=== PATIENT | male | born 1965 | race Caucasian/White ===

== ENCOUNTER 2025-05-31 14:16 | Observation (INO) | payer SELFPAY ==
[2025-05-31] VITALS (9 sets, daily range): BP systolic 151–167; BP diastolic 95–118; PULSE 80–112; RESP 16–19; TEMP 36.7–37.2; O2SAT 93–96; BMI 24.3
--- NOTE | 2025-05-31 14:19 | XRR_ITS ---
PROCEDURE INFORMATION: Exam: XR Chest Exam date and time: 05/31/2025 2:19 PM Age: 59 years old Clinical indication: Condition or disease; Lung condition and disease; Severity not specified; X3 weeks SOB, HX of asthma; Additional info: Dyspnea/cough TECHNIQUE: Imaging protocol: Radiologic exam of the chest. Views: 1 view. COMPARISON: No relevant prior studies available. FINDINGS: Lungs: Unremarkable. No consolidation. Pleural spaces: Unremarkable. No pleural effusion. No pneumothorax. Heart/Mediastinum: Unremarkable. No cardiomegaly. Bones/joints: Unremarkable. XR/XR chest 1V portable [id number] IMPRESSION: No acute findings.
--- NOTE | 2025-05-31 14:19 | ECG_ITS ---
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
[2025-05-31 15:04] LABS: Hematocrit 47.0 % (37-53); Hemoglobin 15.30 g/dL (11.27-16.99); Mean Corpuscular HGB Conc 32.6 g/dL (30-55); Mean Corpuscular Hemoglobin 30.7 pg (27-33); Mean Corpuscular Volume 94.2 fl (82-101); Nucleated Red Blood Cells % 0 %; Platelet Count 251 10^3/cmm (157-399); Red Blood Count 4.99 10^6/uL (3.85-5.65); White Blood Count 11.72 10^3/uL (3.29-11.43)
--- NOTE | 2025-05-31 15:04 | W.ED.SOB ---
HPI - SOB/Dyspnea General: Chief Complaint: Shortness of Breath/Dyspnea Stated Complaint: SOB Time Seen by Provider: 05/31/25 14:18 History of Present Illness: HPI Narrative: 59-year-old male presents to the emergency room complaining of shortness of breath. Is worse after he got shower. He has been on steroids oral antibiotics they did improve things for a bit but once he finished he worsened again nonproductive cough no hemoptysis no chest pain Associated symptoms: Deny abdominal pain, chest congestion, chest pain or fever(s) Related Data Home Medications ?Medication ?Instructions ?Recorded ?Confirmed fexofenadine 180 mg tablet 180 mg PO DAILY 05/31/25 05/31/25 (Allergy Relief (fexofenadine)) fluoxetine 20 mg capsule 20 mg PO DAILY 05/31/25 05/31/25 ibuprofen 200 mg tablet (Advil) 600 mg PO Q6H PRN Fever Or Pain 05/31/25 05/31/25 Previous Rx's ?Medication ?Instructions ?Recorded albuterol sulfate 90 mcg/actuation 1 inh inhalation Q4H PRN shortness 06/01/25 aerosol inhaler (Ventolin HFA) of breath or wheezing #8.5 grams Allergies Allergy/AdvReac Type Severity Reaction Status Date / Time No Known Allergies Allergy Verified 06/01/25 00:48 Review of Systems Const: Denies: fever(s) or chills Card: Denies: chest pain Resp: Reports: dyspnea, non-productive cough and wheezing; Denies: chest congestion GI: Denies: abdominal pain : Denies: dysuria, urinary frequency or urinary urgency Musc: Denies: neck pain or back pain Skin/Breast: Denies: rash Physical Exam Const: COMMON NORMALS: no acute distress GENERAL APPEARANCE: cooperative and comfortable ORIENTATION/CONSCIOUSNESS: Yes awake, Yes oriented to person, Yes oriented to place and Yes oriented to time HENMT: COMMON NORMALS: normocephalic, atraumatic and hearing grossly normal bilaterally HEAD & SCALP: normocephalic and atraumatic Resp: EFFORT & INSPECTION: Yes tachypneic, Yes pursed lip breathing, Yes labored and Yes audible wheezes AUSCULTATION: rhonchi and wheezes Cardio: COMMON NORMALS: regular rate, regular rhythm and No murmurs present (Cardio) RATE: regular rate RHYTHM: regular rhythm GI: COMMON NORMALS: Soft to palpation and No hepatosplenomegaly present AUSCULTATION: Yes normoactive bowel sounds PALPATION: Yes Soft to palpation, No Tenderness to palpation present (GI), No Guarding due to palpation present (GI) and Yes No hepatosplenomegaly present Extremity: COMMON NORMALS: normal to inspection, capillary refill normal, no clubbing, cyanosis or edema, no calf tenderness and no pedal edema Neuro: SENSORIUM/ORIENTATION: Yes oriented to person, Yes oriented to place and Yes oriented to time Skin: COMMON NORMALS: no rashes or lesions noted GENERAL SKIN EXAM: no rashes or lesions noted Course Vital Signs: Vital signs: Vital Signs Temperature 98.3 F 06/01/25 16:19 Pulse Rate 127 H 06/01/25 16:19 Respiratory Rate 18 06/01/25 16:19 Blood Pressure 141/83 06/01/25 16:19 Pulse Oximetry 92 06/01/25 16:19 Oxygen Delivery Me thod Room Air 06/01/25 16:00 Oxygen Flow Rate 2 05/31/25 15:53 MDM - SOB/Dyspnea Medical Decision Making Exacerbation COPD. He is tachycardic mildly hypoxic as failed outpatient treatment will admit for progressive steroids and nebulizers. Lab Data 06/01/25 05:45 06/01/25 05:45 Labs/Radiology: Radiology Impressions Chest X-Ray 06/01/25 08:00 IMPRESSION: No acute pulmonary finding. Chest CTA 06/01/25 13:17 IMPRESSION: 1. No pulmonary embolism. 2. Multifocal opacities, suggestive of pneumonia. Laboratory Results WBC 11.72 10^3/uL (3.29-11.43) H 05/31/25 14:48 RBC 4.99 10^6/uL (3.85-5.65) 05/31/25 14:48 Hgb 15.30 g/dL (11.27-16.99) 05/31/25 14:48 Hct 47.0 % (37-53) 05/31/25 14:48 MCV 94.2 fl (82-101) 05/31/25 14:48 MCH 30.7 pg (27-33) 05/31/25 14:48 MCHC 32.6 g/dL (30-55) 05/31/25 14:48 RDW 13.0 % (12.1-15.1) 05/31/25 14:48 Plt Count 251 10^3/cmm (157-399) 05/31/25 14:48 MPV 9.7 fL (7.4-10.4) 05/31/25 14:48 Neut % (Auto) 72.3 % 05/31/25 14:48 Lymph % (Auto) 13.3 % 05/31/25 14:48 Swain % (Auto) 6.2 % 05/31/25 14:48 Eos % (Auto) 7.4 % 05/31/25 14:48 Baso % (Auto) 0.5 % 05/31/25 14:48 Neut # (Auto) 8.47 10^3/uL (1.8-7.7) H 05/31/25 14:48 Lymph # (Auto) 1.6 10^3/uL (0.8-4.8) 05/31/25 14:48 Swain # (Auto) 0.7 10^3/uL (0.2-0.9) 05/31/25 14:48 Eos # (Auto) 0.9 10^3/uL (0.0-0.8) H 05/31/25 14:48 Baso # (Auto) 0.1 10^3/uL (0.0-0.1) 05/31/25 14:48 Nucleated RBC % (auto) 0 % 05/31/25 14:48 Nucleated RBCs # 0.0 /100WBC 05/31/25 14:48 D-Dimer <= 0.27 ug/mLFEU (0-0.59) 05/31/25 14:43 Sodium 141 mmol/L (136-145) 05/31/25 14:48 Potassium 4.3 mmol/L (3.5-5.1) 05/31/25 14:48 Chloride 106 mmol/L (98-107) 05/31/25 14:48 Carbon Dioxide 21 mmol/L (22-29) L 05/31/25 14:48 Anion Gap 18.3 (5-19) 05/31/25 14:48 BUN 15 mg/dL (6-20) 05/31/25 14:48 Creatinine 1.1 mg/dL (0.7-1.2) 05/31/25 14:48 GFR Calculation 68.8 mL/min (90-130) L 05/31/25 14:48 Glucose 102 mg/dL (65-115) 05/31/25 14:48 Calculated Osmolality 293 mOsm/kg (285-295) 05/31/25 14:48 Calcium 9.3 mg/dL (8.5-10.5) 05/31/25 14:48 Total Bilirubin 0.5 mg/dL (0.15-1.2) 05/31/25 14:48 AST 17 U/L (0-40) 05/31/25 14:48 ALT 21 U/L (0-41) 05/31/25 14:48 Alkaline Phosphatase 70 U/L (40-130) 05/31/25 14:48 Total Protein 6.7 g/dL (6.6-8.7) 05/31/25 14:48 Albumin 4.1 g/dL (3.5-5.2) 05/31/25 14:48 Globulin 2.6 g/dL (1.3-4.6) 05/31/25 14:48 Procalcitonin 0.06 ng/mL (0-0.5) 05/31/25 14:43 Influenza A (PCR) Negative (Negative) 05/31/25 16:13 Influenza Type B (PCR) Negative (Negative) 05/31/25 16:13 RSV (PCR) Negative (Negative) 05/31/25 16:13 SARS-CoV-2 (PCR) Negative (Negative) 05/31/25 16:13 All radiology interpretation(s) finalized by discharge Discharge Plan Discharge Patient Disposition: Placed in Observation Admit Provider: Janice Evangelista Clinical Impression: Acute exacerbation of chronic obstructive airways disease Discharge Diet: Cardiac Discharge Activity: Resume usual activity Coding Level of Care Code ED Eap Clinician for Jean Carlos Camacho
--- NOTE | 2025-05-31 15:22 | PM.HP ---
Providers/Chief Complaint Chief Complaint: SOB History of Present Illness Erlin Dickens is a 59 year old male with past medical history of COPD stroke, hypertension, oxygen dependent at home on 3 L nasal cannula, diabetes mellitus insulin-dependent, from [facility] presented to the hospital today after being sent here for low O2 saturations. He stated that they were in the low 80s. He is a very poor historian. He states he cannot stand up and that is his usual. He is from a skilled nursing. He states his breathing is better than it was before. He was just short of breath. Denies chest pain nausea vomiting abdominal pain. Does have diarrhea x 2 weeks. He states his loose stools and he has been going several times a day. Other than that he is unable to answer any questions. Patient is not altered. He knows where he is. He is just a very poor historian. Work has not been sent with him from the nursing facility. Medications/Allergies Home Medications ?Medication ?Instructions ?Recorded ?Confirmed ?Last Taken ?Type diphenhydramine HCl 25 mg tablet 25 mg PO TID PRN Allergy Symptoms 05/31/25 05/31/25 05/29/25 History (Benadryl Allergy) fexofenadine 180 mg tablet 180 mg PO DAILY 05/31/25 05/31/25 05/31/25 History (Allergy Relief (fexofenadine)) fluoxetine 20 mg capsule 20 mg PO DAILY 05/31/25 05/31/25 05/31/25 History ibuprofen 200 mg tablet (Advil) 600 mg PO Q6H PRN Fever Or Pain 05/31/25 05/31/25 05/30/25 19:00 History Allergies Allergy/AdvReac Type Severity Reaction Status Date / Time amoxicillin (From Augmentin) Allergy Unknown Verified 05/31/25 14:22 clavulanic acid (From Allergy Unknown Verified 05/31/25 14:22 Augmentin) Vitals/I&O/Wt Last Vital Signs Temp 98.0 F 05/31/25 14:17 Pulse 105 H 05/31/25 14:17 Resp 17 05/31/25 14:17 BP 160/108 05/31/25 14:17 Pulse Ox 95 05/31/25 14:17 O2 Del Method Room Air 05/31/25 14:17 Weight last 48 hrs Weight 77.111 kg Physical Exam Narrative: General: Alert oriented x3, patient seen laying in bed appearing comfortable at this time on 3 L nasal cannula., Hypertensive HEENT: Normocephalic, atraumatic, EOMI, no conversational dyspnea, no acute tachypnea. Breathing comfortably. Cardio: Normal S1-S2, muffled heart sounds due to body habitus. Respiratory: Diffuse rhonchi bilateral lung [place] worse at bases. GI: Abdomen soft, nontender, obese rounded abdomen, bowel sounds + Extremities: No gross edema bilateral lower extremities. Data 05/31/25 14:48 05/31/25 14:48 A&P Assessment and plan (1) COPD (chronic obstructive pulmonary disease): (2) COPD exacerbation: (3) Asthma: (4) Hypoxia: (5) Shortness of breath: (6) Supplemental oxygen dependent: (7) Hypertension: (8) Diabetes mellitus: (9) Insulin dependent diabetes mellitus: (10) Diarrhea: Plan #COPD exacerbation #Possible underlying pneumonia #Hypertension #Diabetes mellitus type 2, insulin-dependent #History of stroke #Generalized weakness/deconditioning #[facility] resident ? Continue ceftriaxone azithromycin to cover for COPD exacerbation and possible pneumonia ? Check sputum Gram stain culture ? Check blood cultures ? Leukocytosis WBC 11,000 today. ? D-dimer negative ? Influenza RSV COVID negative. ? Patient does have a history of COPD/asthma. ? Will place on Solu-Medrol 40 IV twice daily. He did receive 125 in the ER already. ? Continue DuoNeb scheduled every 6 hours. ? Check hemoglobin A1c, TSH ? He states he has a history of hypertension however is not on any antihypertensives at home. I will order amlodipine 5 mg daily. ? Blood pressure 160/108 in the ER. ? May titrate medication up as needed. ? Will request records from nursing facility. ? Check blood cultures ? Patient's oxygen is at baseline. ? Oxygen therapy protocol ? Patient will likely need prednisone and antibiotics at discharge. ? Check C. difficile, stool culture ?Monitor for diarrhea. Full code Due to prophylaxis: Heparin SQ twice daily PDMP PDMP Reviewed: Not Reviewed Attestations Medical Necessity Statement*: COPD exacerbation with possible pneumonia. Observation admission expect less than 2 midnight stay. Diagnoses COPD (chronic obstructive pulmonary disease) J44.9 COPD exacerbation J44.1 Asthma J45.909 Hypoxia R09.02 Shortness of breath R06.02 Supplemental oxygen dependent Z99.81 Hypertension I10 Diabetes mellitus E11.9 Insulin dependent diabetes mellitus Diarrhea R19.7
[2025-05-31 15:28] LABS: Alanine Aminotransferase 21 U/L (0-41); Albumin Level 4.1 g/dL (3.5-5.2); Alkaline Phosphatase 70 U/L (40-130); Anion Gap 18.3 (5-19); Aspartate Amino Transferase 17 U/L (0-40); Blood Urea Nitrogen 15 mg/dL (6-20); Calcium 9.3 mg/dL (8.5-10.5); Carbon Dioxide 21 mmol/L (22-29); Chloride 106 mmol/L (98-107); Creatinine Clr Calc Pharmacy 77.2833; Globulin 2.6 g/dL (1.3-4.6); Glucose 102 mg/dL (65-115); Osmolality Calculated 293 mOsm/kg (285-295); Potassium 4.3 mmol/L (3.5-5.1); Sodium 141 mmol/L (136-145); Total Protein 6.7 g/dL (6.6-8.7)
[2025-05-31] MEDS: cefTRIAXone 1,000 mg SDV 1000 MG IVP (15:56)
[2025-05-31] MEDS: methylPREDNISolone sod succ 40 mg/mL INJ IVP (15:58)
[2025-05-31 15:59] LABS: Procalcitonin 0.06 ng/mL (0-0.5)
[2025-05-31] MEDS: heparin 5,000 unit/mL INJ 1 mL 5000 UNIT SUBCUT (16:02)
[2025-05-31 17:04] LABS: Respiratory Syncytial Virus Ce NEGATIVE (Negative); SARS-CoV-2 PCR NEGATIVE (Negative)
[2025-05-31 18:54] LABS: Hematocrit 47.9 % (37-53); Hemoglobin 15.50 g/dL (11.27-16.99); Mean Corpuscular HGB Conc 32.4 g/dL (30-55); Mean Corpuscular Hemoglobin 31.1 pg (27-33); Mean Corpuscular Volume 96.0 fl (82-101); Nucleated Red Blood Cells % 0 %; Platelet Count 251 10^3/cmm (157-399); Red Blood Count 4.99 10^6/uL (3.85-5.65); White Blood Count 10.42 10^3/uL (3.29-11.43)
[2025-05-31 19:25] LABS: NT Pro B Type Natriuretic Pept 89 pg/mL (0-125)
--- NOTE | 2025-05-31 23:38 | P.HP_ITS ---
Providers/Chief Complaint 2 Admitting Physician: Janice Evangelista MD/ Dr Fuller Primary Care Provider: Patient seen and evaluated before 12 midnight Chief Complaint: SOB History of Present Illness Erlin Dickens is a 59 year old male with no significant medical history, patient had never smoked in his life and had avoided secondhand smoking. As a child patient had had ongoing acute on chronic sinusitis and with postnasal drip triggering most of the time asthmatic bronchitis with cough. Patient had been with albuterol nebulizing treatment which helped some but not completely. Patient is allergic to only seasonal allergies. After some years patient was on inhaler Triology. 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 Over a year ago patient was looking into having time off from work by choice trying to retire and with this insurance could not cover Triology. Patient over the past year now started having much asthmatic bronchitis again to where he could not breathe patient used to live in [place] and then moved down here to [place] . 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 I will obtain case management consultation to see what could be done if patient need to be given some supplies to carry him roughly about 3 weeks before the insurance coverage kicks in. The Triology he is using is an inhaler. This patient had dramatically improved had been placed on empiric antibiotics of azithromycin and ceftriaxone for an associated bronchitis and patient also had been given some Solu-Medrol in the emergency room and this had been continued for 40 mg twice daily. This is a 23- hour observation stay. Review of Systems 2 Narrative: System review upon 10 organ review where significant for at this time mild shortness of breath. Otherwise unremarkable patient is on room air pulse ox and 97 to 98%. Medications/Allergies Home Medications ?Medication ?Instructions ?Recorded ?Confirmed ?Last Taken ?Type diphenhydramine HCl 25 mg tablet 25 mg PO TID PRN Rc rgy Symptoms 05/31/25 05/31/25 05/29/25 History (Benadryl Allergy) fexofenadine 180 mg tablet 180 mg PO DAILY 05/31/2505/31/25 History (Allergy Relief (fexofenadine)) fluoxetine 20 mg capsule 20 mg PO DAILY 05/31/25 07/0 03/2205/31/25 History ibuprofen 200 mg tablet (Advil) 600 mg PO Q6H PRN Feve r Or Pain 05/31/25 05/31/25 05/30/25 19:00 History Allergies Allergy/AdvReac Type Severity Reaction Status Date / Time No Known Allergies Allergy Verified 06/01/25 00:48 Vitals/I&O/Wt Last Vital Signs Temp 98.9 F 05/31/25 19:45 Pulse 110 H 05/31/25 20:57 Resp 17 05/31/25 20:50 BP 151/99 05/31/25 19:45 Pulse Ox 94 05/31/25 20:50 O2 Del Method Room Air 05/31/25 20:50 O2 Flow Rate 2 05/31/25 15:53 Weight last 48 hrs Weight 76.975 kg Weight 77.111 kg Physical Exam 2 Narrative: General The patient is in no apparent distress with no conversational dyspnea patient is on room air. HEENT normocephalic/atraumatic Neck neck is supple Heart rate is regular no murmurs Chest lungs are clear with no adventitious breath sounds Abdomen soft nontender nondistended unremarkable Extremities intact no edema has good pulses Neurology has no focality Lab studies and imaging were entirely unremarkable. Chest x-ray with no acute process chemistry unremarkable CBC unremarkable Data 06/01/25 05:45 06/01/25 05:45 A&P Assessment and plan (1) Asthma: Patient is with asthmatic bronchitis with acute exacerbation due to lack of use of Triology - Insurance is not covering Triology inhaler source patient is staying without medication care management - Patient responded to Solu-Medrol and nebulizing treatments at this time. - Patient is yet to have a primary care doctor that will continue to prescribe the Triology - Social service/case management consultation for discharge process regarding patient getting some Triology if this is possible at the time of discharge for patient cannot afford this because it is very expensive should a prescription be written for him His strategy is inhalation once a day and patient most likely will need to have 3 weeks worth of supply before the insurance kicks in in June 28. Patient is walking in this hospital. (2) Shortness of breath: Patient was with bronchial spasm causing shortness of breath with associated bronchitis -Evans antibiotics with ceftriaxone and azithromycin initiated for associated bronchitis - Did not need any oxygen patient is on room air pulse oxing very well - Nebulizing treatments to continue - Solu-Medrol steroid therapy had helped significantly (3) Asthmatic bronchitis with acute exacerbation: Patient is with asthmatic bronchitis with acute exacerbation due to lack of use of Triology - Insurance is not covering Triology inhaler source patient is staying without medication care management - Patient responded to Solu-Medrol and nebulizing treatments at this time. - Patient is yet to have a primary care doctor that will continue to prescribe the Triology - Social service/case management consultation for discharge process regarding patient getting some Triology if this is possible at the time of discharge for patient cannot afford this because it is very expensive should a prescription be written for him His strategy is inhalation once a day and patient most likely will need to have 3 weeks worth of supply before the insurance kicks in in June 28. Patient is walking in this hospital. Plan Gi DVT prophylaxis in place PDMP PDMP Reviewed: Not Reviewed Attestations 2 Medical Necessity Statement*: Patient is with asthmatic bronchitis and issues with shortness of breath I am wheezing had resolved status post care in the emergency room patient is okay to have observation admission for 1 midnights and should be able to be discharged tomorrow with case management to follow-up with patient Triology at discharge if possible. Patient does not have insurance and does not have the money to afford the Triology. This is a 23-hour stay observation Coding Level of Care Code 11170 Diagnoses Severe persistent asthma with acute exacerbation J45.51 Asthma complication type: with acute exacerbation Asthma severity: severe Shortness of breath R06.02 Asthmatic bronchitis with acute exacerbation J45.901 Time Spent (min) 60
[2025-06-01] VITALS (12 sets, daily range): BP systolic 112–141; BP diastolic 68–83; PULSE 102–138; RESP 16–20; TEMP 36.4–36.8; O2SAT 92–97
[2025-06-01] MEDS: heparin 5,000 unit/mL INJ 1 mL 5000 UNIT SUBCUT (03:16)
[2025-06-01 05:59] LABS: Hematocrit 44.7 % (37-53); Hemoglobin 14.70 g/dL (11.27-16.99); Mean Corpuscular HGB Conc 32.9 g/dL (30-55); Mean Corpuscular Hemoglobin 30.9 pg (27-33); Mean Corpuscular Volume 93.9 fl (82-101); Nucleated Red Blood Cells % 0 %; Platelet Count 258 10^3/cmm (157-399); Red Blood Count 4.76 10^6/uL (3.85-5.65); White Blood Count 11.26 10^3/uL (3.29-11.43)
[2025-06-01 06:24] LABS: Alanine Aminotransferase 18 U/L (0-41); Albumin Level 4.0 g/dL (3.5-5.2); Alkaline Phosphatase 61 U/L (40-130); Anion Gap 15.8 (5-19); Aspartate Amino Transferase 13 U/L (0-40); Blood Urea Nitrogen 17 mg/dL (6-20); Calcium 9.1 mg/dL (8.5-10.5); Carbon Dioxide 20 mmol/L (22-29); Chloride 107 mmol/L (98-107); Creatinine Clr Calc Pharmacy 106.0061; Globulin 2.6 g/dL (1.3-4.6); Glucose 158 mg/dL (65-115); Magnesium 2.1 mg/dL (1.7-2.3); Osmolality Calculated 291 mOsm/kg (285-295); Potassium 4.8 mmol/L (3.5-5.1); Sodium 138 mmol/L (136-145); Total Protein 6.6 g/dL (6.6-8.7)
--- NOTE | 2025-06-01 08:00 | XRR_ITS ---
PROCEDURE INFORMATION: Exam: XR Chest Exam date and time: 06/01/2025 9:54 AM Age: 59 years old Clinical indication: Follow up pneumonia; Cough TECHNIQUE: Imaging protocol: Radiologic exam of the chest. Views: 1 view. COMPARISON: CR XR chest 1V portable [id number] 05/31/2025 2:19 PM FINDINGS: Lungs: The pulmonary vessels are within normal limits. The lungs are clear. Pleural spaces: No pneumothorax. Heart/Mediastinum: The cardiomediastinal silhouette is within normal limits. Bones/joints: Chronic left-sided rib fracture XR/XR chest 1V portable [id number] IMPRESSION: No acute pulmonary finding.
[2025-06-01] MEDS: cefTRIAXone 1,000 mg SDV 1000 MG IVP (10:51)
[2025-06-01] MEDS: methylPREDNISolone sod succ 125 mg/2 mL INJ IVP (10:51)
--- NOTE | 2025-06-01 10:54 | PC.CHAP ---
Pastoral Care Encounter/Spiritual Assessment Type of Contact [x] Declined successfactors consultant visit [] Patient/Family/Request visit [] Outpatient visit [] Follow-up visit [] Physician referral [] Code/Alert [x] Routine visit [] Staff referral [] Actively dying [] Patient sleeping [] Family support [] [] Out of room [] Palliative care [] [] Receiving care in room [] Pre-surgical visit [] Trauma [] Long length of stay [] ICU visit [] Other: Relational/Emotional Strength [] Patient feels connected with others/family/visitors/staff [] Distress [] Loneliness/isolation [] Abandonment Spirituality of Patient [] Person of Olesya [] Attends Hindu of their Olesya [] Believes in Prayer [] Reads Bible or Baptist materials [] There are Spiritual issues to be addressed 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 Interventions [] Prayer [] Active listening [] Non-anxious presence [] Spiritual/emotional support [] Crisis/trauma care [] Spiritual counseling [] Bereavement support [] Provided bereavement packet [] Provided Bible/devotional materials [] Provided toy/stuffed animal, coloring book to patient or family member [] Provided Communion [] Anointing/[place] [] Salvation [] Completed spiritual assessment [] Other: Impact on Illness or Injury [] Angry [] Fearful [] Anxious [] Often cries [] Exhaustion [] Unable to work [] Unable to attend yazidism [] Unable to walk/stand [] Unable to read [] Unable to drive [] Unable to eat/drink [] Unable to sleep [] Unable to be with family [] Patient intubated [] Other: Summary Time spent with patient
--- NOTE | 2025-06-01 11:04 | P.DS_ITS ---
Discharge Providers Date of Admission: 05/31/25 17:47 Date of Discharge: June 01, 2025 Attending Provider at Admission: Janice Evangelista MD Attending Provider at Discharge: Israel Hicks MD Diagnoses at Discharge Discharge Diagnosis (1) Asthma: Status: Acute Qualifiers: Asthma severity: severe Asthma complication type: with acute exacerbation Qualified Code(s): J45.51 - Severe persistent asthma with (acute) exacerbation (2) Shortness of breath: Status: Deleted (3) Asthmatic bronchitis with acute exacerbation: Status: Acute Reason for Visit Reason for Visit: SOB Hospital Course Hospital Course This is a 59-year-old male who recently moved from [place] to [place], 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 Patient is adamant about discharge home today, he does have and expiratory wheezing, tachycardia with nebulizer treatments, no chest pain, no reported palpitations, no cardiovascular history, no history of smoking. But nonetheless tells me that he wants to go home. Will discharge home on a prednisone burst, oral antibiotics, with close follow-up with primary care provider as outpatient. Follow-up with pulmonary in 1 month. For his trilogy inhaler, follow-up with pulmonary or primary care provider once he has insurance. Sinus tachycardia, no calf pain, no calf swelling, hemoptysis, no chest pain, D- dimer within normal limits, tachycardia after nebulizer treatment, patient was advised if he continues to have tachycardia or chest pain go to the emergency room Physical Exam Const: COMMON NORMALS: no acute distress and patient oriented x3 Resp: COMMON NORMALS: normal respiratory effort, No retractions and No use of accessory muscles OTHER: And expiratory wheezing Cardio: COMMON NORMALS: regular rhythm, S1 normal heart sound present and S2 normal heart sound present RATE: tachycardic RHYTHM: regular rhythm HEART SOUNDS: S1 normal heart sound present and S2 normal heart sound present GI: COMMON NORMALS: Normal to inspection, nondistended, normoactive bowel sounds present and non-tender Extremity: COMMON NORMALS: no pedal edema Neuro: COMMON NORMALS: patient oriented x3 Psych: COMMON NORMALS: mental status grossly normal Discharge Data Studies Completed and Pending Completed Studies During Hospitalization Category Date Time Status XR chest 1V portable [id number] Routine Exams 06/01/25 08:00 Completed XR chest 1V portable [id number] Stat Exams 05/31/25 14:19 Completed Pending at discharge Category Date Time Status Sputum Culture and Gram Stain Stat Lab 05/31/25 15:24 Uncollected Stool Culture - Enteric [Salmonella / Shigella / Campy] Lab 05/31/25 17:55 Uncollected Routine CV. echo complete* [id number] Routine Ultrasound 06/01/25 15:23 Ordered Radiology Impressions Chest X-Ray 06/01/25 08:00 IMPRESSION: No acute pulmonary finding. Laboratory Results WBC 11.26 10^3/uL (3.29-11.43) 06/01/25 05:45 RBC 4.76 10^6/uL (3.85-5.65) 06/01/25 05:45 Hgb 14.70 g/dL (11.27-16.99) 06/01/25 05:45 Hct 44.7 % (37-53) 06/01/25 05:45 MCV 93.9 fl (82-101) 06/01/25 05:45 MCH 30.9 pg (27-33) 06/01/25 05:45 MCHC 32.9 g/dL (30-55) 06/01/25 05:45 RDW 13.0 % (12.1-15.1) 06/01/25 05:45 Plt Count 258 10^3/cmm (157-399) 06/01/25 05:45 MPV 9.7 fL (7.4-10.4) 06/01/25 05:45 Neut % (Auto) 85.4 % 06/01/25 05:45 Lymph % (Auto) 6.7 % 06/01/25 05:45 [place] % (Auto) 7.2 % 06/01/25 05:45 Eos % (Auto) 0.0 % 06/01/25 05:45 Baso % (Auto) 0.1 % 06/01/25 05:45 Neut # (Auto) 9.61 10^3/uL (1.8-7.7) H 06/01/25 05:45 Lymph # (Auto) 0.8 10^3/uL (0.8-4.8) 06/01/25 05:45 [place] # (Auto) 0.8 10^3/uL (0.2-0.9) 06/01/25 05:45 Eos # (Auto) 0.0 10^3/uL (0.0-0.8) 06/01/25 05:45 Baso # (Auto) 0.0 10^3/uL (0.0-0.1) 06/01/25 05:45 Nucleated RBC % (auto) 0 % 06/01/25 05:45 Nucleated RBCs # 0.0 /100WBC 06/01/25 05:45 D-Dimer <= 0.27 ug/mLFEU (0-0.59) 05/31/25 14:43 Sodium 138 mmol/L (136-145) 06/01/25 05:45 Potassium 4.8 mmol/L (3.5-5.1) 06/01/25 05:45 Chloride 107 mmol/L (98-107) 06/01/25 05:45 Carbon Dioxide 20 mmol/L (22-29) L 06/01/25 05:45 Anion Gap 15.8 (5-19) 06/01/25 05:45 BUN 17 mg/dL (6-20) 06/01/25 05:45 Creatinine 0.8 mg/dL (0.7-1.2) 06/01/25 05:45 GFR Calculation 99.3 mL/min (90-130) 06/01/25 05:45 Glucose 158 mg/dL (65-115) H 06/01/25 05:45 Calculated Osmolality 291 mOsm/kg (285-295) 06/01/25 05:45 Calcium 9.1 mg/dL (8.5-10.5) 06/01/25 05:45 Magnesium 2.1 mg/dL (1.7-2.3) 06/01/25 05:45 Total Bilirubin 0.3 mg/dL (0.15-1.2) 06/01/25 05:45 AST 13 U/L (0-40) 06/01/25 05:45 ALT 18 U/L (0-41) 06/01/25 05:45 Alkaline Phosphatase 61 U/L (40-130) 06/01/25 05:45 NT-Pro-B Natriuret Pep 89 pg/mL (0-125) 05/31/25 18:13 Total Protein 6.6 g/dL (6.6-8.7) 06/01/25 05:45 Albumin 4.0 g/dL (3.5-5.2) 06/01/25 05:45 Globulin 2.6 g/dL (1.3-4.6) 06/01/25 05:45 Procalcitonin 0.06 ng/mL (0-0.5) 05/31/25 14:43 Influenza A (PCR) Negative (Negative) 05/31/25 16:13 Influenza Type B (PCR) Negative (Negative) 05/31/25 16:13 RSV (PCR) Negative (Negative) 05/31/25 16:13 SARS-CoV-2 (PCR) Negative (Negative) 05/31/25 16:13 Vitals Last Vital Signs Temp 98.0 F 06/01/25 07:48 Pulse 106 H 06/01/25 08:00 Resp 20 H 06/01/25 08:00 BP 112/70 06/01/25 07:48 Pulse Ox 94 06/01/25 08:00 O2 Del Method Room Air 06/01/25 08:00 O2 Flow Rate 2 05/31/25 15:53 Discharge Plan Discharge Patient Disposition: Home Condition: Stable Prescriptions: New doxycycline hyclate 100 mg tablet 100 mg PO BID 5 Days Qty: 10 0RF albuterol sulfate [Ventolin HFA] 90 mcg/actuation HFA aerosol inhaler 1 inh inhalation Q4H PRN (Reason: shortness of breath or wheezing) Qty: 8.5 0RF prednisone 20 mg tablet 20 mg PO BID 5 Days Qty: 10 0RF Continued fexofenadine [Allergy Relief (fexofenadine)] 180 mg tablet 180 mg PO DAILY ibuprofen [Advil] 200 mg Tablet 600 mg PO Q6H PRN (Reason: Fever Or Pain) fluoxetine 20 mg capsule 20 mg PO DAILY Discontinued diphenhydramine HCl [Benadryl Allergy] 25 mg Tablet 25 mg PO TID PRN (Reason: Allergy Symptoms) Discharge Orders: Discharge Order (Routine); Ordered 06/01/25 Ordered By: Israel Hicks Referrals: Roberto Carlos Ferrer MD [Physician, Pulmonology] - 1 month Jerardo Khan MD [Physician, Family Practice] - 1 week Discharge Diet: Cardiac Discharge Activity: Resume usual activity Patient Instructions: Opioid Safety, Patient Portal & Moses Instructions Activity Restrictions/Additional Instructions: - If any shortness of breath please go to emergency room - Please take steroid as prescribed - If any chest pain or palpitations go to the emergency room Discharge Attestations Time Spent in Discharge Care*: greater than 30 min Quality Metrics Clinical Quality Measures [ No reported AMI, CVA or VTE this stay] Coding Level of Care Code 17326 Total time (in minutes) for Discharge: 45 Diagnoses Severe persistent asthma with acute exacerbation J45.51 Asthma severity: severe Asthma complication type: with acute exacerbation Shortness of breath R06.02 Asthmatic bronchitis with acute exacerbation J45.901
--- NOTE | 2025-06-01 11:56 | ECG_ITS ---
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
[2025-06-01 13:02] LABS: Troponin(5th) Baseline 8 ng/L (0-15)
--- NOTE | 2025-06-01 13:17 | CTR_ITS ---
PROCEDURE INFORMATION: Exam: CTA Chest With Contrast Exam date and time: 06/01/2025 1:38 PM Age: 59 years old Clinical indication: Cough; Additional info: SOB TECHNIQUE: Imaging protocol: Computed tomographic angiography of the chest with contrast. Exam focused on the arteries. 3D rendering (Not supervised by radiologist): MIP and/or 3D reconstructed images were created by the technologist. Radiation optimization: All CT scans at this facility use at least one of these dose optimization techniques: automated exposure control; mA and/or kV adjustment per patient size (includes targeted exams where dose is matched to clinical indication); or iterative reconstruction. Contrast material: OMNI 350; Contrast volume: 67 ml; Contrast route: INTRAVENOUS (IV); COMPARISON: CR (CHEST, ) 06/01/2025 9:54 AM RADIATION DOSE METRICS: Total DLP (mGy-cm): 327.91 FINDINGS: Pulmonary arteries: Normal. No pulmonary emboli. Aorta: Unremarkable. No aortic aneurysm. No aortic dissection. Lungs: Calcified granulomas in the right upper lobe. Subsegmental consolidation in the superior segment of the left lower lobe. Bronchiectatic changes in bilateral lung bases. Nodular infiltrates in the right upper lobe. Ground-glass opacities in the right lower lobe. Pleural spaces: Unremarkable. No pneumothorax. No pleural effusion. Heart: Unremarkable. No cardiomegaly. No pericardial effusion. Lymph nodes: Unremarkable. No enlarged lymph nodes. Bones/joints: Mild curvature of the thoracic spine convex to the right. There are diffuse enthesopathic changes consistent with benign diffuse idiopathic skeletal hyperostosis (DISH). Soft tissues: Unremarkable. CT/CT angio chest PE protcl [id number] IMPRESSION: 1. No pulmonary embolism. 2. Multifocal opacities, suggestive of pneumonia.
[2025-06-01] MEDS: iohexol 350 mg/mL 500 mL Btl (per mL) IV (13:41)
--- NOTE | 2025-06-01 13:44 | ECG_ITS ---
[facility] Test Date: 2025-06-01 Pat Name: Erlin Dickens Department: Room: 279 Gender: Male Manager Home: : 1965 Requested By: Israel Hicks Order Number: [id number] Reading MD: Measurements Intervals [place] Rate: 129 P: 66 [place]: 172 QRS: 57 QRSD: 88 T: 67 QT: 387 QTc: 569 Interpretive Statements SINUS TACHYCARDIA NONSPECIFIC T-WAVE ABNORMALITY ABNORMAL RHYTHM ECG Compared to ECG 06/01/2025 11:56:34 No significant changes [email or web address]
[2025-06-01 14:30] LABS: Troponin 5 2HR 7.28 ng/L (0-15); Troponin 5 2HR Delta -0.72 ABS# (0-10)
--- NOTE | 2025-06-01 15:51 | PC.NURSE ---
Prescription changed from doxycycline to levofloxacin 750 mg by mouth daily for 7 days. This was called into [facility] for the patient.
== END 2025-06-01 17:00 | disposition home or self-care (01) ==
LOC: ER 16:50 → MEDSURG 17:51
PROVIDERS: Admitting Provider Internal Medicine; Emergency Provider Family Medicine; Visit Provider Family Medicine
DX: J45.901 Unspecified asthma with (acute) exacerbation (principal); J45.51 Severe persistent asthma with (acute) exacerbation; R00.0 Tachycardia, unspecified
CPT/HCPCS: 36415; 71045; 71275; 80053; 83735; 83880; 84145; 84484; 85025; 85378; 87637; 93005; 93010; 94640; 96361; 96372; 96374; 96375; 96376; 99285; G0378; J0696; J1644; J2919; J7030; J9999; Q0144

== ENCOUNTER 2025-06-23 19:14 | Emergency (ER) | payer SELFPAY ==
[2025-06-23] VITALS (7 sets, daily range): BP systolic 142–160; BP diastolic 95–101; PULSE 86–130; RESP 17–28; TEMP 36.6; O2SAT 91–95; BMI 24.5
--- NOTE | 2025-06-23 19:19 | ECG_ITS ---
[facility] Test Date: 2025-06-23 Pat Name: Erlin Dickens Department: Room: Gender: Male Medical Claims Specialist: : 1965 Requested By: Vern Swanson Order Number: [id number] Glover MD: Roque Beard M.D. Measurements Intervals [place] Rate: 100 P: 76 [place]: 163 QRS: 76 QRSD: 91 T: 69 QT: 331 QTc: 428 Interpretive Statements SINUS TACHYCARDIA ABNORMAL RHYTHM ECG Compared to ECG 06/01/2025 13:44:50 T-wave abnormality no longer present Electronically Signed On 06-26-2025 13:56:24 CDT by Roque Beard M.D. [email or web address]
--- NOTE | 2025-06-23 19:36 | XRR_ITS ---
PROCEDURE INFORMATION: Exam: XR Chest Exam date and time: 06/23/2025 7:58 PM Age: 59 years old Clinical indication: Shortness of breath; Additional info: SOB TECHNIQUE: Imaging protocol: Radiologic exam of the chest. Views: 1 view. COMPARISON: CT angio chest PE protcl [id number] 06/01/2025 1:38 PM FINDINGS: Lungs: Pulmonary emphysematous changes present. Patchy interstitial opacities noted in bilateral upper lung [place]. The lungs are free of consolidation. Pleural spaces: Unremarkable. No pleural effusion. No pneumothorax. Heart/Mediastinum: Unremarkable. No cardiomegaly. Bones/joints: Unremarkable. XR/XR chest 1V portable [id number] IMPRESSION: Patchy interstitial opacities noted in the upper lung [place]
--- NOTE | 2025-06-23 19:37 | ED_ITS ---
HPI - SOB/Dyspnea 2 General: Chief Complaint: Shortness of Breath/Dyspnea Stated Complaint: SOB Time Seen by Provider: 06/23/25 19:21 History of Present Illness: HPI Narrative: 59-year-old male with a history of sever e persistent asthma. He has been on Trelegy in the past. He presents with increasing shortness of breath since yesterday when he was out on [place] land working outside. He has been using his albuterol inhaler without relief. He complains of chest tightness, cough with white sputum, wheezing, and significant shortness of breath. Related Data Home Medications ?Medication ?Instructions ?Recorded ?Confirmed fexofenadine 180 mg tablet 180 mg PO DAILY 05/31/25 (Allergy Relief (fexofenadine)) fluoxetine 20 mg capsule 20 mg PO DAILY 05/31/2503/22 ibuprofen 200 mg tablet (Advil) 600 mg PO Q6H PRN Feve r Or Pain 05/31/25 05/31/25 Previous Rx's ?Medication ?Instructions ?Recorded albuterol sulfate 90 mcg/actuation 1 inh inhalation Q4 H PRN shortness 06/01/25 aerosol inhaler (Ventolin HFA) of breath or wheezing # 8.5 grams fluticasone propionate 110 2 inh inhalation BID #12 gr ams 06/23/25 mcg/actuation HFA aerosol inhaler levofloxacin 750 mg tablet 750 mg PO DAILY 7 days #7 t abs 06/23/25 prednisone 10 mg tablet 10 mg PO DIRECTED #30 tab s 06/23/25 Allergies Allergy/AdvReac Type Severity Reaction Status Date / Time amoxicillin (From Augmentin) Allergy Unknown Verified 06/23/25 19:28 clavulanic acid (From Allergy Unknown Verified 06/23/25 19:28 Augmentin) Physical Exam 2 Const: GENERAL APPEARANCE: cooperative and ill appearing; not frail appearing HENMT: COMMON NORMALS: normocephalic, atraumatic and Normal external nose present HEAD & SCALP: normocephalic and atraumatic FACE & SINUS: normal facial exam and face symmetric NOSE: Normal external nose present Eye: COMMON NORMALS: Equal, round and reactive pupils present and EOMs intact bilaterally PUPIL: Yes Equal, round and reactive pupils present Neck/C-Spine: GENERAL: Yes trachea midline Chest: CHEST: Yes Symmetrical chest wall rise Resp: EFFORT & INSPECTION: Yes tachypneic and Yes labored AUSCULTATION: w heezes and diminished lung sounds Cardio: COMMON NORMALS: regular rate and regular rhythm RATE: regular rate RHYTHM: regular rhythm GI: COMMON NORMALS: Normal to inspection, nondistended, normoactive bowel sounds present Extremity: COMMON NORMALS: no pedal edema Neuro: TICO COMA SCALE: document GCS findings [place] coma scale eye opening: Spontaneous [place] coma scale verbal response: Orientated [place] coma scale motor response: Obey commands Pione[place] coma scale total score: 15 S ENSORY EXAM: Yes extremities (intact) Psych: COMMON NORMALS: speech normal SPEECH: Yes normal speech Skin: COMMON NORMALS: no rashes or lesions noted GENERAL SKIN EXAM: no rashes or lesions noted Course 2 Vital Signs: Vital signs: Vital Signs Temperature 97.9 F 06/23/25 19:23 Pulse Rate 98 06/23/25 21:31 Respiratory Rate 17 06/23/25 21:31 Blood Pressure 149/95 06/23/25 21:31 Pulse Oximetry 92 06/23/25 21:31 Oxygen Delivery Me thod Room Air 06/23/25 21:04 Oxygen Flow Rate 2 06/23/25 19:59 MDM - SOB/Dyspnea Medical Decision Making Initially placed on oxygen, as oxygen saturations were 90% on room air. After 2 breathing treatments, Benadryl, Solu-Medrol, he is significantly improved. He is off oxygen satting 94 to 95%. Multifocal pneumonia that was seen on CTA prior, is identified on chest x-ray today. CBC and BMP are normal. Swabs are negative for COVID flu RSV. With improvement in his symptoms, no oxygen dependency, he will be allowed home. Slow steroid taper at this time instead of burst, continue use of albuterol. Will place him on Flovent. Antibiotic coverage. Return for worsening symptoms. Outpatient follow-up. Lab Data 06/23/25 19:44 06/23/25 19:44 Labs/Radiology: Radiology Impressions Chest X-Ray 06/23/25 19:36 IMPRESSION: Patchy interstitial opacities noted in the upper lung [place] Laboratory Results WBC 6.59 10^3/uL (3.29-11.43) 06/23/25 19:44 RBC 4.94 10^6/uL (3.85-5.65) 06/23/25 19:44 Hgb 15.30 g/dL (11.27-16.99) 06/23/25 19:44 Hct 46.0 % (37-53) 06/23/25 19:44 MCV 93.1 fl (82-101) 06/23/25 19:44 MCH 31.0 pg (27-33) 06/23/25 19:44 MCHC 33.3 g/dL (30-55) 06/23/25 19:44 RDW 12.7 % (12.1-15.1) 06/23/25 19:44 Plt Count 251 10^3/cmm (157-399) 06/23/25 19:44 MPV 9.7 fL (7.4-10.4) 06/23/25 19:44 Neut % (Auto) 34.3 % 06/23/25 19:44 Lymph % (Auto) 30.5 % 06/23/25 19:44 [place] % (Auto) 10.5 % 06/23/25 19:44 Eos % (Auto) 23.2 % 06/23/25 19:44 Baso % (Auto) 1.2 % 06/23/25 19:44 Neut # (Auto) 2.26 10^3/uL (1.8-7.7) 06/23/25 19:44 Lymph # (Auto) 2.0 10^3/uL (0.8-4.8) 06/23/25 19:44 [place] # (Auto) 0.7 10^3/uL (0.2-0.9) 06/23/25 19:44 Eos # (Auto) 1.5 10^3/uL (0.0-0.8) H 06/23/25 19:44 Baso # (Auto) 0.1 10^3/uL (0.0-0.1) 06/23/25 19:44 Nucleated RBC % (auto) 0 % 06/23/25 19:44 Nucleated RBCs # 0.0 /100WBC 06/23/25 19:44 Sodium 141 mmol/L (136-145) 06/23/25 19:44 Potassium 4.3 mmol/L (3.5-5.1) 06/23/25 19:44 Chloride 105 mmol/L (98-107) 06/23/25 19:44 Carbon Dioxide 25 mmol/L (22-29) 06/23/25 19:44 Anion Gap 15.3 (5-19) 06/23/25 19:44 BUN 11 mg/dL (6-20) 06/23/25 19:44 Creatinine 1.0 mg/dL (0.7-1.2) 06/23/25 19:44 GFR Calculation 76.7 mL/min (90-130) L 06/23/25 19:44 Glucose 106 mg/dL (65-115) 06/23/25 19:44 Calculated Osmolality 292 mOsm/kg (285-295) 06/23/25 19:44 Lactic Acid 1.3 mmol/L (0.5-2.2) 06/23/25 19:44 Calcium 9.2 mg/dL (8.5-10.5) 06/23/25 19:44 Total Bilirubin 0.2 mg/dL (0.15-1.2) 06/23/25 19:44 AST 15 U/L (0-40) 06/23/25 19:44 ALT 18 U/L (0-41) 06/23/25 19:44 Alkaline Phosphatase 79 U/L (40-130) 06/23/25 19:44 NT-Pro-B Natriuret Pep 55 pg/mL (0-125) 06/23/25 19:44 Total Protein 6.8 g/dL (6.6-8.7) 06/23/25 19:44 Albumin 4.2 g/dL (3.5-5.2) 06/23/25 19:44 Globulin 2.6 g/dL (1.3-4.6) 06/23/25 19:44 Influenza A (PCR) Negative (Negative) 06/23/25 19:44 Influenza Type B (PCR) Negative (Negative) 06/23/25 19:44 RSV (PCR) Negative (Negative) 06/23/25 19:44 SARS-CoV-2 (PCR) Negative (Negative) 06/23/25 19:44 All radiology interpretation(s) finalized by discharge Discharge Plan Discharge Patient Disposition: Home Clinical Impression: Asthma with exacerbation Condition: Stable Prescriptions: New levofloxacin 750 mg tablet 750 mg PO DAILY 7 Days Qty: 7 0RF prednisone 10 mg tablet 10 mg PO DIRECTED Qty: 30 0RF Rx Instructions: 4 [id number], then 3 ZCcLu5r, then 2 ALqAc0x, then 1 QYcUm9e fluticasone propionate 110 mcg/actuation HFA aerosol inhaler 2 inh inhalation BID Qty: 12 0RF Rx Instructions: administer with spacer No Action fexofenadine [Allergy Relief (fexofenadine)] 180 mg tablet 180 mg PO DAILY ibuprofen [Advil] 200 mg Tablet 600 mg PO Q6H PRN (Reason: Fever Or Pain) fluoxetine 20 mg capsule 20 mg PO DAILY albuterol sulfate [Ventolin HFA] 90 mcg/actuation HFA aerosol inhaler 1 inh inhalation Q4H PRN (Reason: shortness of breath or wheezing) Qty: 8.5 0RF Discharge Orders: Discharge ED (Routine); Ordered 06/23/25 Ordered By: Vern Champion Referrals: Jerardo Khan MD [Physician, Family Practice] - 4-7 days Patient Instructions: Asthma Exacerbation - Adult, Opioid Safety, Pain Management, Patient Portal & Moses Instructions Activity Restrictions/Additional Instructions: Return immediately for any problems. Use your albuterol inhaler scheduled every 4 hours for the next 48 hours then as needed. Print Language: Armenian Coding Level of Care Code ED Substance Abuse Clinician for Jean Carlos Camacho
[2025-06-23 19:50] LABS: Hematocrit 46.0 % (37-53); Hemoglobin 15.30 g/dL (11.27-16.99); Mean Corpuscular HGB Conc 33.3 g/dL (30-55); Mean Corpuscular Hemoglobin 31.0 pg (27-33); Mean Corpuscular Volume 93.1 fl (82-101); Nucleated Red Blood Cells % 0 %; Platelet Count 251 10^3/cmm (157-399); Red Blood Count 4.94 10^6/uL (3.85-5.65); White Blood Count 6.59 10^3/uL (3.29-11.43)
[2025-06-23] MEDS: methylPREDNISolone sod succ 125 mg/2 mL INJ IV (19:55)
[2025-06-23] MEDS: diphenhydrAMINE 50 mg/mL SDV 1mL 25 MG IVP (19:56)
[2025-06-23 20:11] LABS: Lactic Sepsis W/Reflex 1.3 mmol/L (0.5-2.2)
[2025-06-23 20:22] LABS: Alanine Aminotransferase 18 U/L (0-41); Albumin Level 4.2 g/dL (3.5-5.2); Alkaline Phosphatase 79 U/L (40-130); Anion Gap 15.3 (5-19); Aspartate Amino Transferase 15 U/L (0-40); Blood Urea Nitrogen 11 mg/dL (6-20); Calcium 9.2 mg/dL (8.5-10.5); Carbon Dioxide 25 mmol/L (22-29); Chloride 105 mmol/L (98-107); Creatinine Clr Calc Pharmacy 85.2180; Globulin 2.6 g/dL (1.3-4.6); Glucose 106 mg/dL (65-115); NT Pro B Type Natriuretic Pept 55 pg/mL (0-125); Osmolality Calculated 292 mOsm/kg (285-295); Potassium 4.3 mmol/L (3.5-5.1); Sodium 141 mmol/L (136-145); Total Protein 6.8 g/dL (6.6-8.7)
[2025-06-23 20:41] LABS: Respiratory Syncytial Virus Ce NEGATIVE (Negative); SARS-CoV-2 PCR NEGATIVE (Negative)
== END 2025-06-23 21:32 | disposition home or self-care (01) ==
PROVIDERS: Emergency Provider Emergency Medicine
DX: J45.901 Unspecified asthma with (acute) exacerbation (principal); Z11.52 Encounter for screening for COVID-19
CPT/HCPCS: 36415; 71045; 80053; 83605; 83880; 85025; 87637; 93005; 94640; 96374; 96375; 99285; J1200; J2919; J7611; J9999

== ENCOUNTER 2025-08-05 08:24 | Inpatient (IN) | payer OTHER, SELFPAY ==
[2025-08-05] VITALS (25 sets, daily range): BP systolic 101–136; BP diastolic 69–91; PULSE 102–128; RESP 12–22; TEMP 36.4–36.5; O2SAT 91–99; BMI 24.3
--- NOTE | 2025-08-05 08:25 | XR_ITS ---
WS: [id number] Portable AP upright chest, 08/05/2025 portable chest, 06/23/2025 Clinical Data: dyspnea/cough Comparison: Portable chest, 06/23/2025 Findings: The faint upper lobe opacities have not changed. No nodules, masses or effusions are seen. The heart is normal. The pulmonary vascularity is not increased. No pneumonia or pneumothorax is seen. The diaphragms are flattened. Monitor leads are on the chest wall. XR/XR chest 1V portable [id number] Impression: 1. No change in faint bilateral upper lobe opacities. 2. Hyperinflation.
--- NOTE | 2025-08-05 08:25 | ECG_ITS ---
[facility] Test Date: 2025-08-05 Pat Name: Erlin Dickens Department: Room: Gender: Male Biological Science Aide: : 1965 Requested By: Mendel Danielle Order Number: [id number] Reading MD: HUNTER JOYNER Measurements Intervals [place] Rate: 115 P: 79 [place]: 165 QRS: 83 QRSD: 93 T: 80 QT: 321 QTc: 446 Interpretive Statements SINUS TACHYCARDIA MINIMAL ST DEPRESSION [0.025+ mV ST DEPRESSION] ABNORMAL RHYTHM ECG Compared to ECG 06/23/2025 19:19:54 ST (T wave) deviation now present Electronically Signed On 08-05-2025 10:45:11 CDT by HUNTER JOYNER [id number]
--- NOTE | 2025-08-05 08:30 | ED_ITS ---
HPI - SOB/Dyspnea 2 General: Chief Complaint: ER Hold Stated Complaint: SOB Time Seen by Provider: 08/05/25 08:24 History of Present Illness: HPI Narrative: 59-year-old male presents emergency room complaining of shortness of breath. Patient has a history of asthma he states he been sick for approximately a week he was on antibiotics which he finished last week he states he never really got any better. He has a history of asthma. On May 31 patient was admitted to the hospital with pneumonia. Today he reports productive cough of discolored sputum denies any hemoptysis. Patient is a non-smoker is not known history of asthma. EMS reports having given him Solu-Medrol as well as DuoNebs and route. They reported his initial oxygen saturation on room air was in the 60% range show on arrival here he is on a 15 L nonrebreather. He is tachycardic and mildly tachypneic. Trial again on room air his sats are 93 to 94%. Patient denies any chest pain. Associated symptoms: Reports chest congestion; Deny abdominal pain, chest pain or fever(s) Related Data Home Medications ?Medication ?Instructions ?Recorded ?Confirmed fluoxetine 20 mg capsule 20 mg PO DAILY 05/31/2507/22 ibuprofen 200 mg tablet (Advil) 600 mg PO Q6H PRN Feve r Or Pain 05/31/25 08/05/25 Previous Rx's ?Medication ?Instructions ?Recorded albuterol sulfate 90 mcg/actuation 1 inh inhalation Q4 H PRN shortness 07/10/25 aerosol inhaler (Ventolin HFA) of breath or wheezing # 8.5 grams fexofenadine 180 mg tablet 180 mg PO DAILY #90 tabs (Allergy Relief (fexofenadine)) fluticasone fur. 200 mcg-umeclid 1 inh inhalation NEHEMIAS Y #28 ea 07/10/25 62.5 mcg-vilant 25 mcg inhalat.powder (Trelegy Ellipta) albuterol sulfate 1.25 mg/3 mL 1.25 mg (3 mL) inhalati on QID PRN 07/25/25 solution for nebulization shortness of breath or wheez ing #75 mL Allergies Allergy/AdvReac Type Severity Reaction Status Date / Time amoxicillin (From Augmentin) Allergy Unknown Verified 06/23/25 19:28 clavulanic acid (From Allergy Unknown Verified 06/23/25 19:28 Augmentin) Review of Systems 2 Const: Denies: fever(s) or chills Card: Denies: chest pain Resp: Reports: dyspnea, productive cough, wheezing and chest congestion GI: Denies: abdominal pain : Denies: dysuria, urinary frequency or urinary urgency Musc: Denies: neck pain or back pain Skin/Breast: Denies: rash PFSH ED 2 PFSH: Medical History Asthma Right testicular cancer Surgical History History of umbilical hernia repair Social History Smoking and tobacco/nicotine status: never used tobacco/nicotine Alcohol intake: never Substance/Drug Use: never Lives independently: Yes Household members: significant other Physical Exam 2 Const: GENERAL APPEARANCE: cooperative ORIENTATION/CONSCIOUSNESS: Yes awake, Yes oriented to person, Yes oriented to place and Yes oriented to time HENMT: COMMON NORMALS: normocephalic, atraumatic and hearing grossly normal bilaterally HEAD & SCALP: normocephalic and atraumatic Resp: EFFORT & INSPECTION: Yes tachypneic, Yes labored and Yes uses accessory muscles AUSCULTATION: rhonchi and wheezes Cardio: COMMON NORMALS: regular rhythm and No murmurs present (Cardio) R ATE: tachycardic RHYTHM: regular rhythm GI: COMMON NORMALS: Soft to palpation and No hepatosplenomegaly present A USCULTATION: Yes normoactive bowel sounds PALPATION: Yes Soft to palpation, No Tenderness to palpation present (GI), No Guarding due to palpation present (GI) and Yes No hepatosplenomegaly present Extremity: COMMON NORMALS: normal to inspection, capillary refill normal, no clubbing, cyanosis or edema, no calf tenderness and no pedal edema Neuro: SENSORIUM/ORIENTATION: Yes oriented to person, Yes oriented to place and Yes oriented to time Skin: COMMON NORMALS: no rashes or lesions noted GENERAL SKIN EXAM: no rashes or lesions noted Course 2 Vital Signs: Vital signs: Vital Signs Temperature 97.5 F L 08/05/25 08:24 Pulse Rate 112 H 08/05/25 14:00 Respiratory Rate 12 08/05/25 14:00 Blood Pressure 132/75 08/05/25 14:00 Pulse Oximetry 98 08/05/25 14:00 Oxygen Delivery Me thod Nasal Cannula 08/05/25 14:50 Oxygen Flow Rate 3 08/05/25 14:00 MDM - SOB/Dyspnea Medical Decision Making Patient has had progressively worsening asthma for the last couple of weeks. He was treated for pneumonia 2 months ago. He was 83% on room air is now requiring 4 L by nasal cannula he remains tachycardic he did have some improvement with steroids and nebulizers but never completely resolved to normal oxygen saturation. Question of early infiltrate on the chest x-ray. Will start on ceftriaxone and Zithromax continue aggressive pulmonary toilet discussed with hospitalist orders written. Medical Records I reviewed the patient's medical records. Lab Data I reviewed the patient's lab results. 08/05/25 09:01 08/05/25 09:01 Labs/Radiology: Radiology Impressions Chest X-Ray 08/05/25 08:25 Impression: 1. No change in faint bilateral upper lobe opacities. 2. Hyperinflation. Gallbladder Ultrasound 08/05/25 09:47 IMPRESSION: 1. Negative gallbladder. 2. No common bile duct dilatation. 3. Echogenic pancreas. Probably due to increased fat deposition or chronic pancreatitis. Laboratory Results WBC 12.21 10^3/uL (3.29-11.43) H 08/05/25 09:01 RBC 4.98 10^6/uL (3.85-5.65) 08/05/25 09:01 Hgb 15.10 g/dL (11.27-16.99) 08/05/25 09:01 Hct 45.6 % (37-53) 08/05/25 09:01 MCV 91.6 fl (82-101) 08/05/25 09:01 MCH 30.3 pg (27-33) 08/05/25 09: MCHC 33.1 g/dL (30-55) 08/05/25 09:01 RDW 12.3 % (12.1-15.1) 08/05/25 09:01 Plt Count 304 10^3/cmm (157-399) 08/05/25 09:01 MPV 9.4 fL (7.4-10.4) 08/05/25 09:01 Neut % (Auto) 58.1 % 08/05/25 09:01 Lymph % (Auto) 14.6 % 08/05/25 09:01 Rankin % (Auto) 4.3 % 08/05/25 09:01 Eos % (Auto) 21.9 % 08/05/25 09:01 Baso % (Auto) 0.6 % 08/05/25 09:01 Neut # (Auto) 7.10 10^3/uL (1.8-7.7) 08/05/25 09:01 Lymph # (Auto) 1.8 10^3/uL (0.8-4.8) 08/05/25 09:01 Rankin # (Auto) 0.5 10^3/uL (0.2-0.9) 08/05/25 09:01 Eos # (Auto) 2.7 10^3/uL (0.0-0.8) H 08/05/25 09:01 Baso # (Auto) 0.1 10^3/uL (0.0-0.1) 08/05/25 09:01 Nucleated RBC % (auto) 0 % 08/05/25 09:01 Nucleated RBCs # 0.0 /100WBC 08/05/25 09:01 Specimen Type Arterial 08/05/25 08:24 Sample Site Radial, left 08/05/25 08:24 ABG pH 7.43 (7.35-7.45) 08/05/25 08:24 ABG pCO2 33.0 mmHg (35-45) L 08/05/25 08:24 ABG pO2 54.9 mmHg (80.0-100.0) L 08/05/25 08:24 ABG HCO3 21.8 mmol/L (22-26) L 08/05/25 08:24 ABG O2 Saturation 90.4 08/05/25 08:24 ABG Base Excess -1.7 mmol/L (-2.0-2.0) 08/05/25 08:24 Luis F Test Pos 08/05/25 08:24 A-a O2 Gradient 7.1 mmHg (5-10) 08/05/25 08:24 Hematocrit 48.4 % (42-52) 08/05/25 08:24 Hgb O2 Saturation 89.6 % (95-100) L 08/05/25 08:24 Carboxyhemoglobin 0.9 %THgb (0.4-20.1) 08/05/25 08:24 Methemoglobin 0.1 % (0.4-1.5) L 08/05/25 08:24 Total Hemoglobin 15.8 g/dL (14-18) 08/05/25 08:24 Sodium 143.0 mmol/L (131-143) 08/05/25 08:24 Potassium 4.0 mmol/L (3.5-5.0) 08/05/25 08:24 Glucose 131.0 mg/dL (70-115) H 08/05/25 08:24 Ionized Calcium 1.2 mmol/L (1.1-1.4) 08/05/25 08:24 O2 Delivery Device Room air 08/05/25 08:24 Coach Mechanic ID Monro 08/05/25 08:24 Sodium 141 mmol/L (136-145) 08/05/25 09:01 Potassium 4.0 mmol/L (3.5-5.1) 08/05/25 09:01 Chloride 106 mmol/L (98-107) 08/05/25 09:01 Carbon Dioxide 22 mmol/L (22-29) 08/05/25 09:01 Anion Gap 17.0 (5-19) 08/05/25 09:01 BUN 12 mg/dL (6-20) 08/05/25 09:01 Creatinine 0.9 mg/dL (0.7-1.2) 08/05/25 09:01 GFR Calculation 86.7 mL/min (90-130) L 08/05/25 09:01 Glucose 130 mg/dL (65-115) H 08/05/25 09:01 Calculated Osmolality 294 mOsm/kg (285-295) 08/05/25 09:01 Lactic Acid 1.8 mmol/L (0.5-2.2) 08/05/25 09:01 Calcium 9.2 mg/dL (8.5-10.5) 08/05/25 09:01 Total Bilirubin 0.4 mg/dL (0.15-1.2) 08/05/25 09:01 AST 43 U/L (0-40) H 08/05/25 09:01 ALT 130 U/L (0-41) H 08/05/25 09:01 Alkaline Phosphatase 200 U/L (40-130) H 08/05/25 09:01 Troponin T Baseline 7 ng/L (0-15) 08/05/25 09:01 Total Protein 6.8 g/dL (6.6-8.7) 08/05/25 09:01 Albumin 4.1 g/dL (3.5-5.2) 08/05/25 09:01 Globulin 2.7 g/dL (1.3-4.6) 08/05/25 09:01 Salicylates < 0.3 mg/dL (3-10) L 08/05/25 09:01 Acetaminophen < 5.0 ug/mL (10-30) L 08/05/25 09:01 Ethyl Alcohol < 10 mg/dL (0-10) 08/05/25 09:01 Hepatitis A IgM Ab Non-reactive (Nonreactive) 08/05/25 09:01 Hep Bs Antigen Non-reactive (Nonreactive) 08/05/25 09:01 Hep B Core IgM Ab Non-reactive (Nonreactive) 08/05/25 09:01 Hepatitis C Antibody Non-reactive (Nonreactive) 08/05/25 09:01 All radiology interpretation(s) finalized by discharge EKG Data EKG 1: Interpretation: EKG 08/05/2025 8:24 AM sinus tachycardia rate of 115 CT interval 165 QTc 446 some rate related changes no ST elevation. Compared to EKG 06/23/2025. EKG 2: Interpretation: EKG 08/05/2025 1004 sinus tachycardia with a rate of 116 CT interval [address] changes likely rate related. No acute ST elevation. Not significantly changed from previous EKG same day Discharge Plan Discharge Patient Disposition: Admitted As Inpatient Admit Provider: Rick Goldberg Clinical Impression: Acute asthma exacerbation Condition: Stable Coding Level of Care Code ED Mechanical Handyman for Jean Carlos Camacho
[2025-08-05 08:37] LABS: ABG PCO2 33.0 mmHg (35-45); ABG PH Result 7.43 (7.35-7.45); Alveolar-Arterial Oxygen Gradi 7.1 mmHg (5-10); Arterial Blood Gas Hematocrit 48.4 % (42-52); Blood Gas Allen Test Pos; Blood Gas Sample Type Arterial; Carboxyhemoglobin 0.9 %THgb (0.4-20.1); Glucose Level-ABG 131.0 mg/dL (70-115); HCO3 ABG 21.8 mmol/L (22-26); Ionized Calcium Level - ABG 1.2 mmol/L (1.1-1.4); Methemoglobin 0.1 % (0.4-1.5); Oxygen Saturation ABG 90.4; PO2 ABG 54.9 mmHg (80.0-100.0); Potassium Level - ABG 4.0 mmol/L (3.5-5.0); Sodium Level - ABG 143.0 mmol/L (131-143)
[2025-08-05 08:38] LABS: Blood Gas Operator Identificat MONRO; Blood Gas Sample Site Radial, left
[2025-08-05 09:10] LABS: Hematocrit 45.6 % (37-53); Hemoglobin 15.10 g/dL (11.27-16.99); Mean Corpuscular HGB Conc 33.1 g/dL (30-55); Mean Corpuscular Hemoglobin 30.3 pg (27-33); Mean Corpuscular Volume 91.6 fl (82-101); Nucleated Red Blood Cells % 0 %; Platelet Count 304 10^3/cmm (157-399); Red Blood Count 4.98 10^6/uL (3.85-5.65); White Blood Count 12.21 10^3/uL (3.29-11.43)
[2025-08-05] MEDS: levofloxacin-dextrose 5 % 750 MG/150 ML PREMIX 100 MG IV (09:15)
[2025-08-05 09:28] LABS: Lactic Sepsis W/Reflex 1.8 mmol/L (0.5-2.2)
[2025-08-05 09:30] LABS: Troponin(5th) Baseline 7 ng/L (0-15)
[2025-08-05 09:43] LABS: Alanine Aminotransferase 130 U/L (0-41); Albumin Level 4.1 g/dL (3.5-5.2); Alkaline Phosphatase 200 U/L (40-130); Anion Gap 17.0 (5-19); Aspartate Amino Transferase 43 U/L (0-40); Blood Urea Nitrogen 12 mg/dL (6-20); Calcium 9.2 mg/dL (8.5-10.5); Carbon Dioxide 22 mmol/L (22-29); Chloride 106 mmol/L (98-107); Creatinine Clr Calc Pharmacy 94.4574; Globulin 2.7 g/dL (1.3-4.6); Glucose 130 mg/dL (65-115); Osmolality Calculated 294 mOsm/kg (285-295); Potassium 4.0 mmol/L (3.5-5.1); Sodium 141 mmol/L (136-145); Total Protein 6.8 g/dL (6.6-8.7)
--- NOTE | 2025-08-05 09:47 | US_ITS ---
WS: [id number] RIGHT UPPER QUADRANT ULTRASOUND HISTORY: elevate LFTs. COMPARISON: None available. Liver: 15.2 cm in length. Normal size liver and echogenicity. No bile duct dilatation or mass. Portal Vein: Normal hepatopetal flow with monophasic waveform. Gallbladder: Normally distended gallbladder with no stones or wall thickening. CBD: 0.5 cm Pancreas: Echogenic pancreas. No mass identified Pancreatic duct is top normal size. Right kidney: 11.3 cm in length. Normal size and echogenicity. No hydronephrosis or mass. Aorta and IVC: Unremarkable abdominal aorta and IVC. No ascites. US/US gall bladder 39042 IMPRESSION: 1. Negative gallbladder. 2. No common bile duct dilatation. 3. Echogenic pancreas. Probably due to increased fat deposition or chronic hall creatitis.
--- NOTE | 2025-08-05 10:04 | ECG_ITS ---
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
[2025-08-05 10:51] LABS: Acetaminophen < 5.0 ug/mL (10-30); Alcohol Level < 10 mg/dL (0-10); Salicylate < 0.3 mg/dL (3-10)
[2025-08-05 10:58] LABS: Hepatitis A Antibody IgM Non-Reactive (Nonreactive); Hepatitis B Surface Antigen Non-Reactive (Nonreactive)
[2025-08-05 11:43] LABS: Troponin 5 2HR < 6.0 ng/L (0-15)
[2025-08-05 11:55] LABS: Troponin 5 2HR Delta -1.00001 ABS# (0-10)
--- NOTE | 2025-08-05 14:19 | P.HP_ITS ---
Providers/Chief Complaint 2 Admitting Physician: Rick Goldberg Primary Care Provider: aJnet Benavides NP Chief Complaint: SOB History of Present Illness Erlin Dickens is a 59 year old patient with a history of asthma presenting with shortness of breath and wheezing. Reports tightness improved after recent treatments, now able to cough up some phlegm; sputum has some discoloration but not green or yellow. Had intermittent fevers last week. Reports headaches with aching down the side of the neck into the right shoulder/back, likely from the effort of breathing. No nausea or vomiting aside from retching with severe cough; no diarrhea; no blood in stools; no hematuria; no rashes. Not normally on supplemental oxygen. Has home nebulizer and uses albuterol nebulization and a rescue albuterol inhaler; uses Trelegy inhaler and reports long-term use with good control previously, with no asthma hospitalizations for ~40 years. Completed a course of antibiotics last for similar symptoms but did not improve. Was hospitalized May 31 for focal pneumonia. Had a pulmonology appointment scheduled for today (first visit) and plans to reschedule. Denies smoking; notes girlfriend smokes outside. Reports significant nasal congestion and tearing; lifelong allergy patient with inhalant triggers. Sleeps upright due to chest tightness; denies typical heartburn; occasionally feels something gets stuck when eating quickly. Denies leg swelling. Review of Systems 2 Const: Denies: fever(s), chills, body aches or malaise ENMT: Denies: throat pain Card: Denies: chest pain, edema, pre-syncope or dyspnea on exertion Resp: Reports: dyspnea and productive cough; Denies: change in phlegm color or hemoptysis GI: Reports: other (Some dry heaving after cough spells); Denies: abdominal pain, nausea, vomiting, diarrhea, constipation, hematochezia or melena : Denies: flank pain, difficulty urinating, urinary frequency or hematuria Musc: Denies: back pain, joint swelling or joint redness Skin/Breast: Denies: rash or new lesions Neuro: Denies: headache(s) or confusion Medications/Allergies Home Medications ?Medication ?Instructions ?Recorded ?Confirmed ?Last Taken ?Type fluoxetine 20 mg capsule 20 mg PO DAILY 05/31/2507/2205/31/25 History ibuprofen 200 mg tablet (Advil) 600 mg PO Q6H PRN Feve r Or Pain 05/31/25 08/05/25 05/30/25 19:00 History albuterol sulfate 90 mcg/actuation 1 inh inhalation Q4 H PRN shortness 07/10/25 08/05/25 08/05/25 07:00 Rx aerosol inhaler (Ventolin HFA) of breath or wheezing # 8.5 grams fexofenadine 180 mg tablet 180 mg PO DAILY #90 tabs 08/05/25 07/29/25 Rx (Allergy Relief (fexofenadine)) fluticasone fur. 200 mcg-umeclid 1 inh inhalation NEHEMIAS Y #28 ea 07/10/25 08/05/25 08/04/25 Rx 62.5 mcg-vilant 25 mcg inhalat.powder (Trelegy Ellipta) albuterol sulfate 1.25 mg/3 mL 1.25 mg (3 mL) inhalati on QID PRN 07/25/25 08/05/25 08/04/25 Rx solution for nebulization shortness of breath or wheez ing #75 mL Allergies Allergy/AdvReac Type Severity Reaction Status Date / Time amoxicillin (From Augmentin) Allergy Unknown Verified 06/23/25 19:28 clavulanic acid (From Allergy Unknown Verified 06/23/25 19:28 Augmentin) PFSH Acute 2 PFSH: Medical History Asthma Right testicular cancer Surgical History History of umbilical hernia repair Social History Smoking and tobacco/nicotine status: never used tobacco/nicotine Alcohol intake: never Substance/Drug Use: never Lives independently: Yes Household members: significant other Vitals/I&O/Wt Last Vital Signs Temp 97.5 F L 08/05/25 08:24 Pulse 119 H 08/05/25 12:30 Resp 18 08/05/25 12:30 BP 129/81 08/05/25 12:30 Pulse Ox 94 08/05/25 12:30 O2 Del Method Nasal Cannula 08/05/25 12:30 O2 Flow Rate 3 08/05/25 12:30 08/04/25 08/05/25 08/05/25 22:59 06:59 14:59 Intake Total 150 / 150 Balance 150 / 150 Weight last 48 hrs Weight 77.111 kg Physical Exam 2 Const: COMMON NORMALS: patient oriented x3 and alert GENERAL APPEARANCE: c ooperative ORIENTATION/CONSCIOUSNESS: Yes awake HENMT: COMMON NORMALS: oropharynx normal Neck/C-Spine: COMMON NORMALS: no JVD Resp: COMMON NORMALS: normal respiratory effort and clear to auscultation bilaterally AUSCULTATION: wheezes and diminished lung sounds Cardio: COMMON NORMALS: no JVD, regular rhythm, S1 normal heart sound present, S2 normal heart sound present and No murmurs present (Cardio) RHYTHM: regular rhythm HEART SOUNDS: S1 normal heart sound present and S2 normal heart sound present GI: COMMON NORMALS: Normal to inspection, nondistended, normoactive bowel sounds present, Soft to palpation and non-tender PALPATION: Yes Soft to palpation Extremity: COMMON NORMALS: no joint enlargement and no pedal edema Neuro: COMMON NORMALS: patient oriented x3 and moves all extremities S ENSORIUM/ORIENTATION: Yes alert Skin: COMMON NORMALS: no rashes or lesions noted GENERAL SKIN EXAM: no rashes or lesions noted Data 08/05/25 09:01 08/05/25 09:01 Micro: Microbiology 08/05/25 09:05 Blood Culture - Preliminary Blood SPECIMEN COLLECTED 08/05/25 09:01 Blood Culture - Preliminary Blood SPECIMEN COLLECTED A&P Assessment and plan 1. Asthma: Acute worsening of asthma symptoms , unresponsive to outpatient treatment recently, with severe exacerbation.with tightness, wheeze, and dyspnea; not normally on oxygen. Received prehospital Solu-Medrol and DuoNebs; on oxygen with improvement. Was treated for pneumonia back in May. Recently persistent/nonresolving symptoms. Noted infiltrates. Noted elevated eosinophils on review of CBC. Consideration of drug-induced pulmonary eosinophilia secondary to NSAIDs (ibuprofen), acute eosinophilic asthma versus chronic eosinophilic asthma, versus EGPA, ABPA. Possible superimposed secondary infection with yellow/green sputum. - Continue breathing treatments. Oxygen support. Resume fexofenadine. - Additionally assess sputum culture and Gram stain, sputum fungal culture. MRSA PCR. Respiratory viral panel. - Assess total IgE level. Consider follow-up for Aspergillus sensitivity testing. Assess ESR, CRP. B12. - Assess stool ova and parasites, although less likely -Discontinue and avoid NSAID - Add corticosteroid (IV); plan to give IV Solu-Medrol to reduce inflammation. Monitor for risk of hypertension, hyperglycemia, gastritis, encephalopathy. - Continue supplemental oxygen and wean as able. - With lung hyperinflation, liver abnormality, assess for possible alpha-1 antitrypsin deficiency given lack of history of smoking, although less likely. -Possible positional related changes as he states he could not sleep flat at night, starts being able to lie down, but then lung tightness gets worse through the night. Possible GERD associated asthma? Discussed with him precautions for GERD. Elevate head of bed, avoid meals for 4 hours before sleep, avoid spicy food, chocolate, coffee, mint, he does not drink. Will add PPI. - Additionally reports intermittently choking up with food, describing it to eating quickly, Possible recurrent aspiration? Will further assess with MBS. - Reschedule if needed and follow up with pulmonology in the office. Original appointment for this Tuesday. 2. Acute exacerbation of chronic obstructive airways disease: As above. 3. Allergic rhinitis: Resume fexofenadine. 4. Transaminitis: Abnormal liver enzymes (elevated AST, ALT, alkaline phosphatase) : AST 43, ALT 130, alkaline phosphatase 200; hepatitis B acute panel non-reactive; reviewed gallbladder ultrasound, without cholelithiasis or common bile duct dilation; patient recently used ibuprofen more than usual and had long-term fexofenadine use (stopped 1 week ago). - Stop ibuprofen (concern for contributing to liver enzyme elevation).Additionally looks like received Bactrim and just recently finished a course. Possible Bactrim related to liver injury? - Continue to withhold/avoid potential offending medications. Reassess CMP. - Fexofenadine does not appear to be a significant risk of liver injury. Can resume. - Attempt to identify prior antibiotic taken (track down prescription). - If liver enzymes do not resolve after holding medications, consider additional evaluation (e.g., iron, copper) as discussed. - Follow up with primary care on 08/13 regarding abnormal liver enzymes. Plan: Hypoxemia : Initial oxygen saturation 60% requiring 15 L non-rebreather; later 94% on 3 L nasal cannula. - Maintain supplemental oxygen with gradual weaning as tolerated. Leukocytosis with eosinophilia, as above: White blood cell count 12.21 reported in ED. Eosinophilia 21%. Suspect most likely drug-induced with NSAID (ibuprofen). Discontinue. Further workup as above and will need follow-up. With transaminitis, possible endorgan injury? Will also assess TTE. Hyperinflation with faint bilateral upper lobe opacities on chest X-ray : Chest X-ray with hyperinflation and faint bilateral upper lobe opacities; patient is a never-smoker; EKG showed sinus tachycardia with T-wave flattening in aVL and V2 (official read pending). - Consider testing for alpha-1 antitrypsin deficiency (given hyperinflation in a never-smoker and liver enzyme abnormalities); send out test with follow-up through primary care. History of pneumonia (May 31) : Prior hospitalization on May 31 for focal pneumonia; subsequent outpatient antibiotic course did not improve symptoms. Sleep-related positional worsening of symptoms : Symptoms worsen when lying flat; sleeps in a chair. Denies typical heartburn; occasional choking when eating quickly. - Consider a trial of an acid candace (for possible reflux-related asthma triggers). - Advise sleeping with head elevated from the start of the night. - Advise avoiding food and drink for about 4 hours before sleep. - Advise avoiding potential lower esophageal sphincter relaxants (coffee, chocolate, spicy foods, alcohol, mint). - Consider assessment of swallowing if symptoms persist (to evaluate for aspiration). Follow-up : Pulmonology visit was scheduled for today (first visit) and will be rescheduled; establishing with primary care on 08/13; code status addressed (full code) and girlfriend identified as contact/surrogate. - Reschedule pulmonology appointment and follow up in office. - Follow up with primary care on 08/13 (Lisa). - Document full code status and girlfriend as surrogate decision-maker. PDMP PDMP Reviewed: Not Reviewed Attestations 2 Medical Necessity Statement*: Admission over 2 midnights anticipated for assessment and management of nonresolving asthma symptoms with infiltrates, possible drug-induced pulmonary eosinophilia, possible acute eosinophilic pneumonia in a gentleman with underlying asthma, as well as new transaminitis, possible endorgan injury secondary to eosinophilia. Diagnoses Asthma J45.909 Acute exacerbation of chronic obstructive airways disease J44.1 Allergic rhinitis J30.9 Transaminitis R74.01
--- NOTE | 2025-08-05 14:25 | ECG_ITS ---
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 Measurements Intervals [place] Rate: 108 P: 76 OR: 189 QRS: 81 QRSD: 89 T: 77 QT: 338 QTc: 454 Interpretive Statements SINUS TACHYCARDIA ABNORMAL RHYTHM ECG Compared to ECG 08/05/2025 10:04:54 No significant changes Electronically Signed On 08-07-2025 22:56:12 CDT by Roque Beard M.D. [email or web address]
[2025-08-05] MEDS: methylPREDNISolone sod succ 40 mg/mL INJ IVP ×2 (15:14→20:36)
[2025-08-05 15:36] LABS: Troponin 5 6HR < 6.0 ng/L (0-15)
[2025-08-05 15:38] LABS: Troponin 5 6HR Delta -1.00001 ng/L (0-12)
[2025-08-05 16:08] LABS: Vitamin B12 840 pg/mL (232-1245)
[2025-08-05 17:54] LABS: MRSA PCR OZH (swab) NOT DETECTED (Negative)
[2025-08-05 18:08] LABS: Coronavirus 229E,HKU1,NL63,OC4 Not Detected (NOT DETECT); Parainfluenza Virus Type 1 Not Detected (NOT DETECT); Parainfluenza Virus Type 2 Not Detected (NOT DETECT); Parainfluenza Virus Type 3 Not Detected (NOT DETECT); Parainfluenza Virus Type 4 Not Detected (NOT DETECT); SARS-COV-2 Not Detected (NOT DETECT)
[2025-08-05] MEDS: MELATONIN 3 MG TABLET 6 MG PO (23:53)
[2025-08-06] VITALS (12 sets, daily range): BP systolic 120–138; BP diastolic 71–87; PULSE 66–109; RESP 15–18; TEMP 36.3–36.7; O2SAT 92–96
[2025-08-06] MEDS: methylPREDNISolone sod succ 40 mg/mL INJ IVP ×4 (03:02→21:24)
[2025-08-06 04:48] LABS: Hematocrit 43.9 % (37-53); Hemoglobin 14.20 g/dL (11.27-16.99); Mean Corpuscular HGB Conc 32.3 g/dL (30-55); Mean Corpuscular Hemoglobin 30.3 pg (27-33); Mean Corpuscular Volume 93.6 fl (82-101); Nucleated Red Blood Cells % 0 %; Platelet Count 326 10^3/cmm (157-399); Red Blood Count 4.69 10^6/uL (3.85-5.65); White Blood Count 11.70 10^3/uL (3.29-11.43)
[2025-08-06 05:09] LABS: Alanine Aminotransferase 97 U/L (0-41); Albumin Level 3.9 g/dL (3.5-5.2); Alkaline Phosphatase 167 U/L (40-130); Anion Gap 17.7 (5-19); Aspartate Amino Transferase 21 U/L (0-40); Blood Urea Nitrogen 11 mg/dL (6-20); Calcium 9.1 mg/dL (8.5-10.5); Carbon Dioxide 21 mmol/L (22-29); Chloride 107 mmol/L (98-107); Creatinine Clr Calc Pharmacy 122.5080; Globulin 3.0 g/dL (1.3-4.6); Glucose 144 mg/dL (65-115); Osmolality Calculated 294 mOsm/kg (285-295); Potassium 4.7 mmol/L (3.5-5.1); Sodium 141 mmol/L (136-145); Total Protein 6.9 g/dL (6.6-8.7)
--- NOTE | 2025-08-06 15:04 | FL_ITS ---
WS: [id number] Modified barium swallow, 08/06/2025 Clinical Data: Pharyngeal dysphagia Comparison: None. Fluoroscopy time: 2min [id number] # of spot films: 0 Findings: The patient exhibited premature spillage of food and liquids. There is no significant residue of material in the hypopharynx. No aspiration or penetration occurred. The patient ingested the barium tablet and propelled through the oral cavity into the hypopharynx then the esophagus and finally the stomach. FL/FL barium swallow modifd [id number] Impression: 1. Premature spillage of food and liquids. 2. No aspiration or penetration.
--- NOTE | 2025-08-06 15:21 | P.PN_ITS ---
Subjective 2 Subjective: He feels he is improving. Still wheezing, breathing better today. Coming off oxygen. Vitals/I&O/Wt Last Vital Signs Temp 97.4 F L 08/06/25 11:23 Pulse 101 H 08/06/25 13:48 Resp 18 08/06/25 13:48 BP 125/79 08/06/25 11:23 Pulse Ox 96 08/06/25 13:48 O2 Del Method Room Air 08/06/25 13:48 O2 Flow Rate 2 08/06/25 08:00 08/06/25 08/06/25 08/06/25 06:59 14:59 22:59 Intake Total 480 / 2801.667 1000 / 1000 Balance 480 / 2061.667 1000 / 1000 Weight last 48 hrs Weight 78.744 kg Weight 78.426 kg Weight 77.111 kg Physical Exam 2 Const: COMMON NORMALS: patient oriented x3 and alert GENERAL APPEARANCE: c ooperative ORIENTATION/CONSCIOUSNESS: Yes awake HENMT: COMMON NORMALS: oropharynx normal Neck/C-Spine: COMMON NORMALS: no JVD Resp: COMMON NORMALS: normal respiratory effort AUSCULTATION: wheezes Cardio: COMMON NORMALS: no JVD, regular rhythm, S1 normal heart sound present, S2 normal heart sound present and No murmurs present (Cardio) RHYTHM: regular rhythm HEART SOUNDS: S1 normal heart sound present and S2 normal heart sound present GI: COMMON NORMALS: Normal to inspection, nondistended, normoactive bowel sounds present, Soft to palpation and non-tender PALPATION: Yes Soft to palpation Extremity: COMMON NORMALS: no joint enlargement and no pedal edema Neuro: COMMON NORMALS: patient oriented x3 and moves all extremities S ENSORIUM/ORIENTATION: Yes alert Skin: COMMON NORMALS: no rashes or lesions noted GENERAL SKIN EXAM: no rashes or lesions noted Data 08/06/25 04:04 08/06/25 04:04 Micro: Microbiology 08/05/25 09:51 Gram Stain - Final Sputum - Expectorated Sputum Sputum Culture - Preliminary 08/05/25 09:05 Blood Culture - Preliminary Blood NEGATIVE TO DATE 08/05/25 09:01 Blood Culture - Preliminary Blood NEGATIVE TO DATE A&P Assessment and plan 1. Severe persistent asthma with acute exacerbation: Showing improvement. Improving air entry. Still wheezing. Weaning off oxygen.room air. Still with some tachycardia. Echocardiogram has been obtained to assess for cardiac involvement. Pending interpretation. 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 Continue IV corticosteroids. Reviewed eosinophils today, noted with decrease asthma exacerbation/resolution of significant eosinophilia. Follow-up pending studies. Needs follow-up with pulmonology. Reviewed vitals, CBC, chemistry, respiratory viral panel. Pending antibody levels/serologies. Continue to withhold and avoid NSAIDs as per discussion with him with possible NSAID induced eosinophilia. Noted resolving transaminitis. Acute worsening of asthma symptoms , unresponsive to outpatient treatment recently, with severe exacerbation.with tightness, wheeze, and dyspnea; not normally on oxygen. Received prehospital Solu-Medrol and DuoNebs; on oxygen with improvement. Was treated for pneumonia back in May. Recently persistent/nonresolving symptoms. Noted infiltrates. Noted elevated eosinophils on review of CBC. Consideration of drug-induced pulmonary eosinophilia secondary to NSAIDs (ibuprofen), acute eosinophilic asthma versus chronic eosinophilic asthma, versus EGPA, ABPA. Possible superimposed secondary infection with yellow/green sputum. - Continue breathing treatments. Oxygen support. Resume fexofenadine. - Additionally assess sputum culture and Gram stain, sputum fungal culture. MRSA PCR. Respiratory viral panel. - Assess total IgE level. Consider follow-up for Aspergillus sensitivity testing. Reviewed ESR, CRP. B12. ESR and CRP with mild to moderate elevation. B12 normal. - Assess stool ova and parasites, although less likely. Discussed with him. -Discontinue and avoid NSAID - Continue corticosteroid (IV); plan to give IV Solu-Medrol to reduce inflammation. Monitor for risk of hypertension, hyperglycemia, gastritis, encephalopathy. - Continue supplemental oxygen and wean as able. - With lung hyperinflation, liver abnormality, assess for possible alpha-1 antitrypsin deficiency given lack of history of smoking, although less likely. -Possible positional related changes as he states he could not sleep flat at night, starts being able to lie down, but then lung tightness gets worse through the night. Possible GERD associated asthma? Discussed with him precautions for GERD. Elevate head of bed, avoid meals for 4 hours before sleep, avoid spicy food, chocolate, coffee, mint, he does not drink. Will add PPI. - Additionally reports intermittently choking up with food, describing it to eating quickly, Possible recurrent aspiration? Will further assess with MBS. - Reschedule if needed and follow up with pulmonology in the office. Original appointment for this Tuesday. 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 2. Acute exacerbation of chronic obstructive airways disease: As above. 3. Allergic rhinitis: Resume fexofenadine. 4. Transaminitis: Improving. With hold and avoid NSAIDs. Improving. Reviewed CMP. With hold and avoid NSAIDs. Discussed with him. Reviewed gallbladder/liver ultrasound. Possible Bactrim related to liver injury? Has completed the course. - Continue to withhold/avoid potential offending medications. Reassess CMP. - Fexofenadine does not appear to be a significant risk of liver injury. Can resume. - If liver enzymes do not resolve after holding medications, consider additional evaluation (e.g., iron, copper) as discussed. - Follow up with primary care on 08/13 regarding abnormal liver enzymes. Plan: Hypoxemia : Improving. Continue management as above. Initial oxygen saturation 60% requiring 15 L non-rebreather; later 94% on 3 L nasal cannula. - Maintain supplemental oxygen with gradual weaning as tolerated. Leukocytosis with eosinophilia, as above: Improving. Resolved eosinophilia today. Follow-up obtained TTE. Hyperinflation with faint bilateral upper lobe opacities on chest X-ray : Chest X-ray with hyperinflation and faint bilateral upper lobe opacities; patient is a never-smoker; EKG showed sinus tachycardia with T-wave flattening in aVL and V2 (official read pending). - Consider testing for alpha-1 antitrypsin deficiency (given hyperinflation in a never-smoker and liver enzyme abnormalities); send out test with follow-up through primary care. History of pneumonia (May 31) : Prior hospitalization on May 31 for focal pneumonia; subsequent outpatient antibiotic course did not improve symptoms. Sleep-related positional worsening of symptoms : Symptoms worsen when lying flat; sleeps in a chair. Denies typical heartburn; occasional choking when eating quickly. - Consider a trial of an acid candace (for possible reflux-related asthma triggers). - Advise sleeping with head elevated from the start of the night. - Advise avoiding food and drink for about 4 hours before sleep. - Advise avoiding potential lower esophageal sphincter relaxants (coffee, chocolate, spicy foods, alcohol, mint). - Consider assessment of swallowing if symptoms persist (to evaluate for aspiration). Follow-up : Pulmonology visit was scheduled for Tuesday (first visit) and will need to be rescheduled; establishing with primary care on 08/13; code status addressed (full code) and girlfriend identified as contact/surrogate. - Reschedule pulmonology appointment and follow up in office. - Follow up with primary care on 08/13 (via [employer]). - Document full code status and girlfriend as surrogate decision-maker. PDMP PDMP Reviewed: Not Reviewed Attestations 2 Medical Necessity Statement*: Continue admission for assessment and management of persistent asthma exacerbation, eosinophilia, possible recent Philith pneumonia, unresponsive to outpatient treatment, cardiac assessment, hepatotoxicity, additional comorbidities. and High MDM includes amount and/or complexity of data reviewed/ordered [ resulted lab(s)/test(s), ordered lab(s)/test(s) and other healthcare professional discussion] and described risk of complication, morbidity or mortality of management as documented Diagnoses Severe persistent asthma with acute exacerbation J45.51 Asthma severity: severe Asthma persistence: persistent Asthma complication type: with acute exacerbation Acute exacerbation of chronic obstructive airways disease J44.1 Allergic rhinitis J30.9 Transaminitis R74.01
--- NOTE | 2025-08-06 15:28 | USCV_ITS ---
Erlin Dickens Age: 59 Gender: M : 1965 Exam Date: 08/06/2025 14:02 Ordering Phys: Rick Goldberg MD Technologist: Exam Location: [facility] [place] Indication: tach BP: 139 / 79 HR: 112 Rhythm: Sinus Technical Quality: Adequate MEASUREMENTS (Male / Female) Normal Values 2D ECHO LV Diastolic Diameter PLAX 3.7 cm 4.2 - 5.9 / 3.9 - 5.3 cm IVS Diastolic Thickness 1.1 cm 0.6 - 1.0 / 0.6 - 0.9 cm IVS Systolic Thickness 1.5 cm LVPW Diastolic Thickness 1.2 cm 0.6 - 1.0 / 0.6 - 0.9 cm LVPW Systolic Thickness 1.5 cm LVOT Diameter 2.0 cm LV Ejection Fraction 2D Teich 64.4 % LV Ejection Fraction MOD 4C 67.3 % LV Ejection Fraction MOD 2C 70.6 % LV Ejection Fraction 2C AL 71.7 % LA Diameter 2.9 cm RA Systolic Volume 4C AL 52.6 ml RA Systolic Volume 4C MOD 49.3 ml Aorta at Sinotubular Diameter 2.9 cm M-MODE LA Ao Ratio MM 1.2 AV Cusp Separation MM 2.5 cm DOPPLER AV Peak Velocity 165.0 cm/s LVOT Peak Velocity 137.0 cm/s AV Area Cont Eq vti 2.6 cm squared AV Area Cont Eq pk 2.6 cm squared MV Peak Velocity 149.0 cm/s MV Area PHT 5.6 cm squared Mitral E to A Ratio 1.3 TV Peak Velocity 192.0 cm/s TR Peak Velocity 205.0 cm/s TR Peak Gradient 16.8 mmHg TV Peak E Velocity 158.0 cm/s PV Peak Velocity 124.0 cm/s FINDINGS Left Ventricle Normal left ventricular cavity size. Hyperdynamic left ventricular systolic function. Left ventricular ejection fraction is estimated at 75%. Normal diastolic function. Right Ventricle Normal right ventricular size and systolic function. RVSP could not be calculated due to incomplete tricuspid regurgitation velocity profile. Right Atrium Normal right atrial size. Left Atrium Normal left atrial size. Mitral Valve No mitral valve stenosis. No mitral valve regurgitation. Aortic Valve No aortic valve stenosis. No aortic valve regurgitation. Tricuspid Valve Trace tricuspid valve regurgitation. Pulmonic Valve No pulmonary valve stenosis. No pulmonary valve regurgitation. Pericardium No pericardial effusion. Aorta Normal size aortic root and proximal ascending aorta. IVC Normal inferior vena cava. CONCLUSIONS 1. Hyperdynamic left ventricular systolic function. Left ventricular ejection fraction is estimated at 75%. 2. Normal RV size and function 3. Normal valvular function. Roque Beard MD, FACC (Electronically Signed) Final Date: 06 August 2025 20:13 S
[2025-08-06] MEDS: MELATONIN 3 MG TABLET 6 MG PO (21:40)
[2025-08-07] MEDS: methylPREDNISolone sod succ 40 mg/mL INJ IVP ×2 (02:15→08:19)
[2025-08-07 02:20] VITALS: PULSE 97; RESP 18; O2SAT 95
[2025-08-07 02:40] LABS: Hematocrit 42.1 % (37-53); Hemoglobin 13.90 g/dL (11.27-16.99); Mean Corpuscular HGB Conc 33.0 g/dL (30-55); Mean Corpuscular Hemoglobin 31.1 pg (27-33); Mean Corpuscular Volume 94.2 fl (82-101); Nucleated Red Blood Cells % 0 %; Platelet Count 333 10^3/cmm (157-399); Red Blood Count 4.47 10^6/uL (3.85-5.65); White Blood Count 20.08 10^3/uL (3.29-11.43)
[2025-08-07 02:59] LABS: Alanine Aminotransferase 79 U/L (0-41); Albumin Level 3.7 g/dL (3.5-5.2); Alkaline Phosphatase 147 U/L (40-130); Anion Gap 15.9 (5-19); Aspartate Amino Transferase 19 U/L (0-40); Blood Urea Nitrogen 14 mg/dL (6-20); Calcium 8.9 mg/dL (8.5-10.5); Carbon Dioxide 21 mmol/L (22-29); Chloride 107 mmol/L (98-107); Creatinine Clr Calc Pharmacy 107.1945; Globulin 2.8 g/dL (1.3-4.6); Glucose 168 mg/dL (65-115); Osmolality Calculated 292 mOsm/kg (285-295); Potassium 4.9 mmol/L (3.5-5.1); Sodium 139 mmol/L (136-145); Total Protein 6.5 g/dL (6.6-8.7)
[2025-08-07 03:43] VITALS: BP 120/73; PULSE 99; RESP 20; TEMP 36.4; O2SAT 91
[2025-08-07 07:32] VITALS: BP 132/75; PULSE 80; RESP 16; TEMP 36.7
--- NOTE | 2025-08-07 08:01 | PM.DCS ---
Discharge Providers Date of Admission: 08/05/25 10:47 Date of Discharge: August 07, 2025 Attending Provider at Admission: Rick Goldberg Attending Provider at Discharge: Rick Goldberg Primary Care Provider: Janet Benavides NP Diagnoses at Discharge Discharge Diagnosis 1. Severe persistent asthma with acute exacerbation: 2. Acute exacerbation of chronic obstructive airways disease: 3. Allergic rhinitis: 4. Transaminitis: Reason for Visit Reason for Visit: SOB Brief History: Erlin Dickens is a 59 year old patient with a history of asthma presenting with shortness of breath and wheezing. Reports tightness improved after recent treatments, now able to cough up some phlegm; sputum has some discoloration but not green or yellow. Had intermittent fevers last week. Reports headaches with aching down the side of the neck into the right shoulder/back, likely from the effort of breathing. No nausea or vomiting aside from retching with severe cough; no diarrhea; no blood in stools; no hematuria; no rashes. Not normally on supplemental oxygen. Has home nebulizer and uses albuterol nebulization and a rescue albuterol inhaler; uses Trelegy inhaler and reports long-term use with good control previously, with no asthma hospitalizations for ~40 years. Completed a course of antibiotics last for similar symptoms but did not improve. Was hospitalized May 31 for focal pneumonia. Had a pulmonology appointment scheduled for today (first visit) and plans to reschedule. Denies smoking; notes girlfriend smokes outside. Reports significant nasal congestion and tearing; lifelong allergy patient with inhalant triggers. Sleeps upright due to chest tightness; denies typical heartburn; occasionally feels something gets stuck when eating quickly. Denies leg swelling. Hospital Course Hospital Course He was admitted and treated for severe nonresolving asthma exacerbation, maintain oxygen supplementation, treated with IV corticosteroid with Solu-Medrol, breathing treatments and resumed on fexofenadine. Sputum culture so far showing moderate normal felicia on preliminary study. With significant eosinophilia further considerations include drug-induced eosinophilia secondary to NSAIDs (ibuprofen), eosinophilic asthma, EPGA, ABPA. As per discussion with him ibuprofen is discontinued, and he knows to avoid NSAIDs. As noted these may have contributed to transaminitis as well, which has been improving through his hospitalization. Gallbladder ultrasound unremarkable, with incidentally found hyperechogenicity of pancreas possibly secondary to fat deposition as he has not had symptoms of chronic pancreatitis. Additional studies requested with IgE levels as well as Aspergillus IgM and IgG serologies. CRP and ESR with noted moderate elevation. Vitamin B12 level normal. ANCA titer has been requested. Echocardiogram implies for assessment of any cardiac involvement, with noted unremarkable study. With incidentally noted hyperinflation on the x-ray, with no history of smoking, and with liver abnormalities, alpha-1 antitrypsin test is sent as well, please follow-up. With treatment and withholding ibuprofen his symptoms are showing good improvement. His eosinophilia has rapidly resolved. Asthma exacerbations showing good improvement. With some infiltrates present although otherwise afebrile, without productive cough, leukocytosis with increase likely secondary to corticosteroids, however, as cannot entirely exclude concomitant pneumonia, antibiotic course is provided for 5 days alongside the prednisone taper, with resumption of high-dose Trelegy and nebulization treatments. His he states he has a good supply of medication for the nebulizer. Follow-up is requested for him with pulmonology for further assessment and management. Physical Exam Narrative: He is feeling better. Has not been requiring oxygen. Has ambulated. Feeling of mild congestion, otherwise continues to improve. Const: COMMON NORMALS: patient oriented x3 and alert GENERAL APPEARANCE: cooperative ORIENTATION/CONSCIOUSNESS: Yes awake HENMT: COMMON NORMALS: oropharynx normal Neck/C-Spine: COMMON NORMALS: no JVD Resp: COMMON NORMALS: normal respiratory effort OTHER: Minimal wheeze. Otherwise clear to auscultation. Cardio: COMMON NORMALS: no JVD, regular rhythm, S1 normal heart sound present, S2 normal heart sound present and No murmurs present (Cardio) RHYTHM: regular rhythm HEART SOUNDS: S1 normal heart sound present and S2 normal heart sound present GI: COMMON NORMALS: Normal to inspection, nondistended, normoactive bowel sounds present, Soft to palpation and non-tender PALPATION: Yes Soft to palpation Extremity: COMMON NORMALS: no joint enlargement and no pedal edema Neuro: COMMON NORMALS: patient oriented x3 and moves all extremities SENSORIUM/ORIENTATION: Yes alert Skin: COMMON NORMALS: no rashes or lesions noted GENERAL SKIN EXAM: no rashes or lesions noted Discharge Data Studies Completed and Pending Completed Studies During Hospitalization Category Date Time Status FL barium swallow modifd [id number] Routine Exams 08/06/25 15:04 Completed XR chest 1V portable [id number] Stat Exams 08/05/25 08:25 Completed CV. echo complete* [id number] Routine Ultrasound 08/06/25 15:28 Completed US gall bladder [id number] Stat Ultrasound 08/05/25 09:47 Completed Pending at discharge Category Date Time Status ANCA [Anti-Neutrophil Cytoplasmic AB] Routine Lab 08/05/25 18:30 Received Blood Culture Stat Lab 08/05/25 09:05 Results Cell Count & Diff Fluid Other Routine Lab 08/05/25 15:16 Uncollected Complete Blood Count w/Auto AM LABS Lab 08/08/25 04:00 Ordered Comprehensive Metabolic Panel AM LABS Lab 08/08/25 04:00 Ordered Fungal Culture not HR/SK/BL Routine Lab 08/05/25 15:17 Uncollected Immunoglobulin E Routine Lab 08/05/25 18:30 Received Miscellaneous Test Routine Lab 08/05/25 18:30 Received Miscellaneous Test Routine Lab 08/05/25 18:30 Received OVA and Parasites, Conc and PE Routine Lab 08/05/25 15:38 Uncollected Sputum Culture and Gram Stain Stat Lab 08/05/25 09:51 Results Radiology Impressions Chest X-Ray 08/05/25 08:25 Impression: 1. No change in faint bilateral upper lobe opacities. 2. Hyperinflation. Gallbladder Ultrasound 08/05/25 09:47 IMPRESSION: 1. Negative gallbladder. 2. No common bile duct dilatation. 3. Echogenic pancreas. Probably due to increased fat deposition or chronic pancreatitis. Modified Barium Swallow 08/06/25 15:04 Impression: 1. Premature spillage of food and liquids. 2. No aspiration or penetration. Laboratory Results WBC 20.08 10^3/uL (3.29-11.43) H 08/07/25 02:26 RBC 4.47 10^6/uL (3.85-5.65) 08/07/25 02:26 Hgb 13.90 g/dL (11.27-16.99) 08/07/25 02:26 Hct 42.1 % (37-53) 08/07/25 02:26 MCV 94.2 fl (82-101) 08/07/25 02:26 MCH 31.1 pg (27-33) 08/07/25 02: MCHC 33.0 g/dL (30-55) 08/07/25 02: RDW 12.8 % (12.1-15.1) 08/07/25 02: Plt Count 333 10^3/cmm (157-399) 08/07/25 02: MPV 9.7 fL (7.4-10.4) 08/07/25 02: Neut % (Auto) 93.0 % 08/07/25 02: Lymph % (Auto) 3.6 % 08/07/25 02: [place] % (Auto) 1.7 % 08/07/25 02: Eos % (Auto) 0.0 % 08/07/25 02: Baso % (Auto) 0.1 % 08/07/25 02: Neut # (Auto) 18.66 10^3/uL (1.8-7.7) H 08/07/25 02: Lymph # (Auto) 0.7 10^3/uL (0.8-4.8) L 08/07/25 02: [place] # (Auto) 0.4 10^3/uL (0.2-0.9) 08/07/25 02: Eos # (Auto) 0.0 10^3/uL (0.0-0.8) 08/07/25 02: Baso # (Auto) 0.0 10^3/uL (0.0-0.1) 08/07/25 02: Nucleated RBC % (auto) 0 % 08/07/25 02: Nucleated RBCs # 0.0 /100WBC 08/07/25 02:26 ESR 22 mm/hr (0-10) H 08/05/25 09:01 Specimen Type Arterial 08/05/25 08:24 Sample Site Radial, left 08/05/25 08:24 ABG pH 7.43 (7.35-7.45) 08/05/25 08:24 ABG pCO2 33.0 mmHg (35-45) L 08/05/25 08:24 ABG pO2 54.9 mmHg (80.0-100.0) L 08/05/25 08:24 ABG HCO3 21.8 mmol/L (22-26) L 08/05/25 08:24 ABG O2 Saturation 90.4 08/05/25 08:24 ABG Base Excess -1.7 mmol/L (-2.0-2.0) 08/05/25 08:24 Luis F Test Pos 08/05/25 08:24 A-a O2 Gradient 7.1 mmHg (5-10) 08/05/25 08:24 Hematocrit 48.4 % (42-52) 08/05/25 08:24 Hgb O2 Saturation 89.6 % (95-100) L 08/05/25 08:24 Carboxyhemoglobin 0.9 %THgb (0.4-20.1) 08/05/25 08:24 Methemoglobin 0.1 % (0.4-1.5) L 08/05/25 08:24 Total Hemoglobin 15.8 g/dL (14-18) 08/05/25 08:24 Sodium 143.0 mmol/L (131-143) 08/05/25 08:24 Potassium 4.0 mmol/L (3.5-5.0) 08/05/25 08:24 Glucose 131.0 mg/dL (70-115) H 08/05/25 08:24 Ionized Calcium 1.2 mmol/L (1.1-1.4) 08/05/25 08:24 O2 Delivery Device Room air 08/05/25 08:24 [employer] Worker ID [place]ro 08/05/25 08:24 Sodium 139 mmol/L (136-145) 08/07/25 02:26 Potassium 4.9 mmol/L (3.5-5.1) 08/07/25 02:26 Chloride 107 mmol/L (98-107) 08/07/25 02:26 Carbon Dioxide 21 mmol/L (22-29) L 08/07/25 02:26 Anion Gap 15.9 (5-19) 08/07/25 02:26 BUN 14 mg/dL (6-20) 08/07/25 02:26 Creatinine 0.8 mg/dL (0.7-1.2) 08/07/25 02:26 GFR Calculation 99.3 mL/min (90-130) 08/07/25 02:26 Glucose 168 mg/dL (65-115) H 08/07/25 02:26 Calculated Osmolality 292 mOsm/kg (285-295) 08/07/25 02:26 Lactic Acid 1.8 mmol/L (0.5-2.2) 08/05/25 09:01 Calcium 8.9 mg/dL (8.5-10.5) 08/07/25 02:26 Total Bilirubin 0.2 mg/dL (0.15-1.2) 08/07/25 02:26 AST 19 U/L (0-40) 08/07/25 02:26 ALT 79 U/L (0-41) H 08/07/25 02:26 Alkaline Phosphatase 147 U/L (40-130) H 08/07/25 02:26 Troponin T Baseline 7 ng/L (0-15) 08/05/25 09:01 Troponin T 120 Minute < 6.0 ng/L (0-15) 08/05/25 11:04 Delta Troponin T -1.81664 ABS# (0-10) L 08/05/25 11:04 Troponin T Hi Sens 6Hr < 6.0 ng/L (0-15) 08/05/25 14:55 Troponin T Hi Sens 6Hr Delta -1.06243 ng/L (0-12) L 08/05/25 14:55 C-Reactive Protein 5.6 mg/L (0.0-4.9) H 08/05/25 11:04 Total Protein 6.5 g/dL (6.6-8.7) L 08/07/25 02:26 Albumin 3.7 g/dL (3.5-5.2) 08/07/25 02:26 Globulin 2.8 g/dL (1.3-4.6) 08/07/25 02:26 Bgcrh-6-Bprcojrznic 187 mg/dL (83-199) 08/05/25 09:01 Vitamin B12 840 pg/mL (232-1245) 08/05/25 11:04 Nasal MRSA (PCR) Not detected (Negative) 08/05/25 15:42 Salicylates < 0.3 mg/dL (3-10) L 08/05/25 09:01 Acetaminophen < 5.0 ug/mL (10-30) L 08/05/25 09:01 Ethyl Alcohol < 10 mg/dL (0-10) 08/05/25 09:01 Adenovirus (PCR) Not detected (NOT DETECT) 08/05/25 15:42 C. pneumoniae DNA (PCR) Not detected (NOT DETECT) 08/05/25 15:42 Coronavirus 229E (PCR) Not detected (NOT DETECT) 08/05/25 15:42 Hepatitis A IgM Ab Non-reactive (Nonreactive) 08/05/25 09:01 Hep Bs Antigen Non-reactive (Nonreactive) 08/05/25 09:01 Hep B Core IgM Ab Non-reactive (Nonreactive) 08/05/25 09:01 Hepatitis C Antibody Non-reactive (Nonreactive) 08/05/25 09:01 Human Metapneumovir PCR Not detected (NOT DETECT) 08/05/25 15:42 Influenza A (H1) PCR Not detected (NOT DETECT) 08/05/25 15:42 Influ A (H1/09) PCR Not detected (NOT DETECT) 08/05/25 15:42 Influenza A (H3) PCR Not detected (NOT DETECT) 08/05/25 15:42 Influenza Type A (PCR) Not detected (NOT DETECT) 08/05/25 15:42 Influenza Type B (PCR) Not detected (NOT DETECT) 08/05/25 15:42 M. pneumoniae (PCR) Not detected (NOT DETECT) 08/05/25 15:42 Parainfluenza 1 (PCR) Not detected (NOT DETECT) 08/05/25 15:42 Parainfluenza 2 (PCR) Not detected (NOT DETECT) 08/05/25 15:42 Parainfluenza 3 (PCR) Not detected (NOT DETECT) 08/05/25 15:42 Parainfluenza 4 (PCR) Not detected (NOT DETECT) 08/05/25 15:42 RSV Type A (PCR) Not detected (NOT DETECT) 08/05/25 15:42 RSV Type B (PCR) Not detected (NOT DETECT) 08/05/25 15:42 Entero/Rhino (PCR) Not detected (NOT DETECT) 08/05/25 15:42 SARS-CoV-2 (PCR) Not detected (NOT DETECT) 08/05/25 15:42 Vitals Last Vital Signs Temp 98.1 F 08/07/25 07:32 Pulse 80 08/07/25 07:32 Resp 16 08/07/25 07:32 BP 132/75 08/07/25 07:32 Pulse Ox 91 08/07/25 03:43 O2 Del Method Room Air 08/07/25 07:32 O2 Flow Rate 2 08/06/25 08:00 FiO2 97 08/07/25 07:32 Discharge Plan Discharge Patient Disposition: Home Condition: Stable Prescriptions: New pantoprazole 40 mg Tablet,Delayed Release (Dr/Ec) 40 mg PO DAILY Qty: 42 0RF prednisolone sodium phosphate 15 mg tablet,disintegrating See Rx Instructions .ROUTE .COMPLEX Qty: 20 0RF Rx Instructions: 3 tab daily for 3 days, then 2 tab for 3 days, then 1 tab for 3 days, then 1/2 tab for 4 days. levofloxacin 750 mg tablet 750 mg PO DAILY 5 Days Qty: 5 0RF Continued albuterol sulfate [Ventolin HFA] 90 mcg/actuation HFA aerosol inhaler 1 inh inhalation Q4H PRN (Reason: shortness of breath or wheezing) Qty: 8.5 2RF Trelegy Ellipta 200-62.5-25 mcg blister with device 1 inh inhalation DAILY Qty: 28 2RF fexofenadine [Allergy Relief (fexofenadine)] 180 mg tablet 180 mg PO DAILY Qty: 90 2RF albuterol sulfate 1.25 mg/3 mL solution for nebulization 1.25 mg inhalation QID PRN (Reason: shortness of breath or wheezing) Qty: 75 0RF fluoxetine 20 mg capsule 20 mg PO DAILY Discontinued ibuprofen [Advil] 200 mg Tablet 600 mg PO Q6H PRN (Reason: Fever Or Pain) Discharge Order = DC NOW: Discharge Order (Routine); Ordered 08/07/25 Ordered By: Rick Goldberg Referrals: Cristel Navarro MD [Physician, Pulmonology] - 4-7 days Referral Note: Recurrent asthma exacerbation, eosinophilia, NSAID? Eosinophilic PNA? EGPA? We have notified your physician's clinic of the need for a follow-up appointment to be scheduled. If you have not heard from them within the next 2 business days, please call them directly. Jerardo Khan MD [Physician, Family Practice] - 08/13/25 8:00 am Discharge Diet: As Directed Discharge Activity: Increase activity as tolerated Patient Instructions: Prednisolone (By mouth), Pantoprazole (By mouth), Asthma (GEN), Opioid Safety, Patient Portal & [facility] Instructions Activity Restrictions/Additional Instructions: Avoiding NSAIDs as discussed (ibuprofen and other similar medications). He can resume fexofenadine. Complete prednisone taper. Follow-up with pulmonology and resume follow-up with your primary provider for further assessment of significant eosinophilia, possible eosinophilic pneumonia, asthma, workup for other possible conditions. Follow-up with pulmonary medicine also regarding hyperinflation incidentally seen on imaging, consideration of possible emphysema, follow-up alpha-1 antitrypsin study. With possible reflux, as discussed elevate head of bed to about 30 degrees, avoid food or drink for about 4 hours prior to going to bed, avoid mint, chocolate, coffee, spicy food, alcohol. Have your primary doctor reassess your liver function which has been showing improvement. Follow-up with your primary doctor regarding incidentally noted echogenic pancreas. As discussed, seek medical attention in case of worsening or new concerning symptoms. Discharge Attestations Time Spent in Discharge Care*: greater than 30 min Quality Metrics Clinical Quality Measures [ No reported AMI, CVA or VTE this stay] Coding Level of Care Code 88684 Total time (in minutes) for Discharge: 50 Diagnoses Severe persistent asthma with acute exacerbation J45.51 Asthma severity: severe Asthma persistence: persistent Asthma complication type: with acute exacerbation Acute exacerbation of chronic obstructive airways disease J44.1 Allergic rhinitis J30.9 Transaminitis R74.01
[2025-08-07 08:11] VITALS: PULSE 97; RESP 18; O2SAT 93
[2025-08-07 08:20] VITALS: PULSE 95
[2025-08-08 11:49] LABS: ANCA Screen NEGATIVE (NEGATIVE)
== END 2025-08-07 10:45 | disposition home or self-care (01) | DRG 191 ==
LOC: ER 10:00 → ER IP 10:48 → MEDSURG 15:37
PROVIDERS: Admitting Provider Internal Medicine; Emergency Provider Family Medicine; Visit Provider Internal Medicine
DX: J44.1 Chronic obstructive pulmonary disease with (acute) exacerbation (principal); J45.41 Moderate persistent asthma with (acute) exacerbation; J82.82 Acute eosinophilic pneumonia; R74.01 Elevation of levels of liver transaminase levels; Z88.1 Allergy status to other antibiotic agents; R00.0 Tachycardia, unspecified; Z85.47 Personal history of malignant neoplasm of testis; D72.19 Other eosinophilia; T39.315A Adverse effect of propionic acid derivatives, initial encounter; T38.0X5A Adverse effect of glucocorticoids and synthetic analogues, initial encounter; Y92.239 Unspecified place in hospital as the place of occurrence of the external cause; J43.9 Emphysema, unspecified; Z11.52 Encounter for screening for COVID-19; J30.9 Allergic rhinitis, unspecified; J44.0 Chronic obstructive pulmonary disease with (acute) lower respiratory infection; K21.9 Gastro-esophageal reflux disease without esophagitis; Z79.51 Long term (current) use of inhaled steroids; R09.02 Hypoxemia
CPT/HCPCS: 36415; 36600; 71045; 74230; 76705; 80051; 80053; 80074; 80307; 82103; 82330; 82607; 82785; 82805; 83605; 84484; 85025; 85651; 86003; 86036; 86140; 86606; 87040; 87070; 87205; 87486; 87581; 87633; 92611; 93005; 93306; 94640; 94664; 96365; 96372; 96375; 99285; J1650; J1956; J2919; J7030; J9999

== ENCOUNTER → 2025-08-26 11:36 | Outpatient (BNVA) | payer OTHER, SELFPAY | PROVIDERS: PCP Family Medicine; Visit Provider Registered Nurse Neonatal Intensive Care | DX: S60.052A Contusion of left little finger without damage to nail, initial encounter (principal); M79.89 Other specified soft tissue disorders; W23.2XXA Caught, crushed, jammed or pinched between a moving and stationary object, initial encounter | CPT/HCPCS: 73130 ==

== ENCOUNTER → 2025-09-19 11:50 | Outpatient (BNVA) | payer OTHER, SELFPAY | PROVIDERS: PCP Family Medicine; Visit Provider Internal Medicine | DX: J44.9 Chronic obstructive pulmonary disease, unspecified (principal); J98.4 Other disorders of lung; Z87.81 Personal history of (healed) traumatic fracture | CPT/HCPCS: 71046 ==